=== PATIENT | male | born 1950 | race Caucasian/White ===

== ENCOUNTER 2016-11-05 12:01 | Emergency (ER) | payer MEDICARE, OTHER ==
[~2016-11-05] VITALS: Ht 180.3 cm; Wt 100.0 kg
[~2016-11-05 12:01] MED LIST: ADV100 IH; AMIO200T PO; ATOR40TA71 PO; CILO2.5OS OD; CLOP75TA PO; DICL1OS OD; DICL4100G TP; DIPH25 PO; DSS100 PO; ESOM20CA31 PO; FAMO20 PO; FOLI1TAB15 PO; INSU100C6 SQ; INSU100V12 SQ; LACT10SO PO; LISI-622 PO; METO25TA6 PO; MULT-12 PO; NITR0.4T SL; NITR25OR3 PO; ONDA8TAB5 PO; OXYC10TA89 PO; PANT40TA25 PO; PREDAOS OD; RANO10003 PO; SENN8.6T12 PO; SULF-168 PO; TAMS0.4C32 PO
[2016-11-05 12:03] VITALS: BP 145/60
[2016-11-05 12:17] LABS: GLUCOSE,POINT OF CARE 133 MG/DL (70-110)
[2016-11-05 16:16] LABS: APPEARANCE,URINE TURBID (CLEAR); GLUCOSE, URINE (UA) NEGATIVE (NEGATIVE); KETONES,URINE NEGATIVE (NEGATIVE); LEUKOCYTE ESTERASE ,URINE MODERATE (NEGATIVE); OCCULT BLOOD,URINE LARGE (NEGATIVE); PROTEIN,URINE SEE CONFIRM (NEGATIVE)
[2016-11-05 16:36] LABS: ADD UA MICROSCOPIC YES
[2016-11-05 16:52] LABS: AMORPHOUS SEDIMENT,UR Many /LPF (None Seen); SQUAMOUS EPITHELIAL CELL,UR Few /LPF (None Seen); SULFOSALICYLIC ACID,URINE 2+ (Negative); WBC,URINE 26-50 /HPF (0-5)
== END 2016-11-05 18:17 | disposition home or self-care (01) ==
LOC: EMS 12:02
DX: N39.0 Urinary tract infection, site not specified (principal); K21.9 Gastro-esophageal reflux disease without esophagitis; E11.9 Type 2 diabetes mellitus without complications; I25.2 Old myocardial infarction; J44.9 Chronic obstructive pulmonary disease, unspecified; E78.00 Pure hypercholesterolemia, unspecified; Z88.0 Allergy status to penicillin; Z79.4 Long term (current) use of insulin
CPT/HCPCS: 82962; 87086; 99284

== ENCOUNTER 2016-12-19 17:29 | Inpatient (IN) | payer MEDICARE, OTHER ==
[~2016-12-19] VITALS: Ht 172.7 cm; Wt 109.1 kg
[~2016-12-19 17:29] MED LIST changes: -SULF-168 PO
[2016-12-19 17:47] LABS: GLUCOSE,POINT OF CARE 144 MG/DL (70-110)
[2016-12-19] MEDS ORDERED: ONDANSETRON HCL 4 MG/2 ML VIAL IVP ONE (18:15)
[2016-12-19 18:28] LABS: BASOPHILS % (AUTO) 0.1 % (0.0-2.0); EOSINOPHILS % (AUTO) 1.2 % (1.0-6.0); HEMATOCRIT 42.9 % (41-53); HEMOGLOBIN 13.7 g/dL (13.5-17.5); LYMPHOCYTES # (AUTO) 0.7 K/uL (1.0-4.8); LYMPHOCYTES % (AUTO) 7.7 % (22.0-44.0); MEAN CORPUSCULAR HEMOGLOBIN 28.4 pg (26.0-34.0); MEAN CORPUSCULAR VOLUME 89 fL (80-100); MONOCYTES % (AUTO) 10.3 % (2.0-9.0); NEUTROPHILS # (AUTO) 7.7 K/uL (1.8-7.7); NEUTROPHILS % (AUTO) 80.7 % (40.0-70.0); PLATELET COUNT (AUTO) 200 K/uL (150-450); RED BLOOD CELL COUNT(AUTO) 4.83 MIL/uL (4.50-5.90); RED CELL DISTRIBUTION WIDTH 14.2 % (11.5-14.5); WHITE BLOOD COUNT (AUTO) 9.5 K/uL (4.5-11.0)
[2016-12-19 18:38] LABS: CALCIUM, TOTAL 8.4 mg/dL (8.8-10.5); CREATININE 3.27 mg/dL (0.60-1.30); POTASSIUM 4.2 mmol/L (3.5-5.1)
[2016-12-19 18:43] LABS: ALBUMIN 3.4 g/dL (3.4-5.0); BILIRUBIN,TOTAL 0.5 mg/dL (0.1-1.0); TOTAL PROTEIN, SERUM 6.9 g/dL (6.4-8.2)
[2016-12-19] MEDS ORDERED: SODIUM CHLORIDE 0.9% 1,000 ML IV ONE (19:15)
[2016-12-19 19:53] LABS: APPEARANCE,URINE TURBID (CLEAR); GLUCOSE, URINE (UA) NEGATIVE (NEGATIVE); KETONES,URINE NEGATIVE (NEGATIVE); LEUKOCYTE ESTERASE ,URINE MODERATE (NEGATIVE); OCCULT BLOOD,URINE LARGE (NEGATIVE); PROTEIN,URINE SEE CONFIRM (NEGATIVE)
[2016-12-19] MEDS ORDERED: CefTRIAXone 1 GM/DEXTROSE 50 ML IV ONE (20:00)
[2016-12-19 20:03] LABS: SULFOSALICYLIC ACID,URINE 3+ (Negative)
[2016-12-19 20:04] LABS: SQUAMOUS EPITHELIAL CELL,UR Few /LPF (None Seen)
[2016-12-19 20:06] LABS: HYALINE CASTS, URINE 0-2 /LPF (None Seen); RBC,URINE 51-100 /HPF (0-2)
[2016-12-19 20:07] LABS: WBC,URINE 51-100 /HPF (0-5)
[2016-12-19 20:08] LABS: RENAL EPITHELIAL CELLS,URINE Few /LPF (None Seen)
[2016-12-19 20:09] LABS: TRANSITIONAL EPI CELLS,URINE Rare /LPF (None Seen)
[2016-12-19] MEDS ORDERED: MORPHINE SULFATE 4 MG/ML SYRINGE IVP PRN (21:00)
[2016-12-19] MEDS ORDERED: HYDROCODONE/ACETAMINOPHEN 5-325 MG TABLET PO PRN (21:00)
[2016-12-19] MEDS ORDERED: ACETAMINOPHEN 325 MG TABLET PO PRN (21:00)
[2016-12-19] MEDS ORDERED: ONDANSETRON HCL 4 MG/2 ML VIAL IVP PRN (21:00)
[2016-12-19 21:14] VITALS: BP 161/83
[2016-12-20] MEDS ORDERED: ACETAMINOPHEN 325 MG TABLET PO PRN
[2016-12-20] MEDS ORDERED: BISACODYL 10 MG RECTAL RECTAL SUPPOSITORY PR PRN
[2016-12-20] MEDS ORDERED: ALBUTEROL SULFATE 2.5 MG/0.5 ML NEB SOLUTION NEB PRN
[2016-12-20] MEDS ORDERED: IPRATROPIUM BROMIDE 0.5 MG/2.5 ML NEB SOLUTION NEB PRN
[2016-12-20 00:18] VITALS: BP 161/90
[2016-12-20] MEDS: MORPHINE SULFATE 2 MG/ML SYRINGE IVP PRN ×4 (00:23→15:08)
[2016-12-20] MEDS: SODIUM CHLORIDE 0.45% 1,000 ML IV SCH ×3 (00:25→22:35)
[2016-12-20] MEDS: HEPARIN SODIUM,PORCINE 5,000 UNITS/ML VIAL SQ SCH ×4 (00:27→22:35)
[2016-12-20 01:42] LABS: GLUCOSE,POINT OF CARE 132 MG/DL (70-110)
[2016-12-20 05:13] VITALS: BP 161/69
[2016-12-20] MEDS: HYDROCODONE/ACETAMINOPHEN 5-325 MG TABLET PO PRN ×2 (06:13→11:40)
[2016-12-20 07:32] LABS: GLUCOSE,POINT OF CARE 122 MG/DL (70-110)
[2016-12-20 07:44] VITALS: BP 102/80
[2016-12-20] MEDS: DOCUSATE SODIUM 100 MG CAPSULE PO SCH ×2 (08:34→21:00)
[2016-12-20] MEDS: MULTIVITAMINS, THERAPEUTIC TABLET PO SCH (08:34)
[2016-12-20] MEDS: FOLIC ACID 1 MG TABLET PO SCH (08:34)
[2016-12-20] MEDS: ATORVASTATIN CALCIUM 40 MG TABLET PO SCH (08:34)
[2016-12-20] MEDS: CLOPIDOGREL BISULFATE 75 MG TABLET PO SCH (08:34)
[2016-12-20] MEDS: AMIODARONE HCL 200 MG TABLET PO SCH (08:34)
[2016-12-20] MEDS: TAMSULOSIN HCL 0.4 MG CAPSULE PO SCH (08:35)
[2016-12-20] MEDS: PANTOPRAZOLE SODIUM 40 MG/VIAL IVP SCH (08:35)
[2016-12-20] MEDS: NITROFURANTOIN MACROCRYSTAL 50 MG CAPSULE PO SCH (08:35)
[2016-12-20] MEDS: DICLOFENAC SODIUM 1% 100 GM GEL [4GM] TP SCH (08:35)
[2016-12-20] MEDS: FAMOTIDINE 20 MG TABLET PO SCH ×2 (08:36→22:34)
[2016-12-20] MEDS: PHENAZOPYRIDINE HCL 200 MG TABLET PO SCH ×2 (08:36→16:00)
[2016-12-20] MEDS: METOPROLOL TARTRATE 25 MG TABLET PO SCH ×2 (08:36→21:00)
[2016-12-20] MEDS ORDERED: LISINOPRIL 5 MG TABLET PO SCH (09:00)
[2016-12-20] MEDS ORDERED: DOCUSATE SODIUM 100 MG CAPSULE PO SCH (09:00)
[2016-12-20 11:57] VITALS: BP 125/81
[2016-12-20 16:49] VITALS: BP 105/40
[2016-12-20] MEDS ORDERED: NITR50 PO (16:49)
[2016-12-20] MEDS ORDERED: IOHEXOL 240 MG/ML 50 ML VIAL ONE ×2 (17:22→20:53)
[2016-12-20] MEDS ORDERED: HEPARIN SODIUM 1000 UNITS/NS 500 ML ONE (17:33)
[2016-12-20] MEDS ORDERED: LIDOCAINE HCL/PF 1% 30 ML VIAL ONE (17:33)
[2016-12-20] MEDS: CIPROFLOXACIN 400 MG/D5% WATER 200 ML IV SCH ×2 (18:00→18:30)
[2016-12-20 18:13] LABS: INR 1.1 (0.9-1.1); PROTHROMBIN TIME 11.5 SEC (9.4-11.6)
[2016-12-20] MEDS: HYDROmorphone 2 MG/ML SYRINGE IVP PRN ×2 (19:07→22:34)
[2016-12-20] MEDS ORDERED: MIDAZOLAM HCL 2 MG/2 ML VIAL IVP ONE (19:26)
[2016-12-20] MEDS ORDERED: FentaNYL CITRATE-PF 100 MCG/2 ML VIAL ONE (19:30)
[2016-12-20] MEDS ORDERED: MIDAZOLAM HCL 2 MG/2 ML VIAL ONE (19:30)
[2016-12-20] MEDS ORDERED: FentaNYL CITRATE-PF 100 MCG/2 ML VIAL IVP ONE (20:27)
[2016-12-20 22:15] VITALS: BP 119/58
[2016-12-20] MEDS: RANOLAZINE 500 MG SR TABLET PO SCH (22:34)
[2016-12-20] MEDS: CefTRIAXone 1 GM/DEXTROSE 50 ML IV SCH (22:35)
[2016-12-21] VITALS (8 sets, daily range): BP systolic 94–148; BP diastolic 46–97
[2016-12-21] MEDS: SODIUM CHLORIDE 0.45% 1,000 ML IV SCH (02:50)
[2016-12-21] MEDS: HYDROmorphone 2 MG/ML SYRINGE IVP PRN ×2 (02:50→08:40)
[2016-12-21] MEDS: CIPROFLOXACIN 400 MG/D5% WATER 200 ML IV SCH ×2 (05:30→17:37)
[2016-12-21 06:53] LABS: BASOPHILS % (AUTO) 0.4 % (0.0-2.0); EOSINOPHILS % (AUTO) 2.3 % (1.0-6.0); HEMATOCRIT 39.9 % (41-53); HEMOGLOBIN 12.9 g/dL (13.5-17.5); LYMPHOCYTES # (AUTO) 1.4 K/uL (1.0-4.8); LYMPHOCYTES % (AUTO) 14.3 % (22.0-44.0); MEAN CORPUSCULAR HEMOGLOBIN 28.7 pg (26.0-34.0); MEAN CORPUSCULAR HGB CONC 32.3 G/dL (31.0-37.0); MEAN CORPUSCULAR VOLUME 89 fL (80-100); MONOCYTES % (AUTO) 10.6 % (2.0-9.0); NEUTROPHILS # (AUTO) 6.9 K/uL (1.8-7.7); NEUTROPHILS % (AUTO) 72.4 % (40.0-70.0); PLATELET COUNT (AUTO) 230 K/uL (150-450); RED BLOOD CELL COUNT(AUTO) 4.49 MIL/uL (4.50-5.90); RED CELL DISTRIBUTION WIDTH 14.5 % (11.5-14.5); WHITE BLOOD COUNT (AUTO) 9.6 K/uL (4.5-11.0)
[2016-12-21 06:55] LABS: ANION GAP 15 mmol/L (8-16); CALCIUM, TOTAL 7.7 mg/dL (8.8-10.5); CARBON DIOXIDE 19 mmol/L (22-29); CHLORIDE 105 mmol/L (98-107); CHOL/HDL RATIO 4.6 (4.2-7.3); CREATINE KINASE MB 1.8 ng/mL (0-5); CREATINE KINASE, TOTAL 170 U/L (39-308); CREATININE 4.03 mg/dL (0.60-1.30); GLOMERULAR FILTR. RATE CALC 15 mL/min (>60); POTASSIUM 4.4 mmol/L (3.5-5.1); SODIUM SERUM 139 mmol/L (136-145); THYROID STIMULATING HORMONE 2.76 uIU/mL (0.36-3.74); UREA NITROGEN, BLOOD 50 mg/dL (7-18)
[2016-12-21 07:34] LABS: B-TYPE NATRIURETIC PEPTIDE 78 pg/mL (0-100)
[2016-12-21] MEDS: HEPARIN SODIUM,PORCINE 5,000 UNITS/ML VIAL SQ SCH ×3 (08:00→23:35)
[2016-12-21] MEDS: RANOLAZINE 500 MG SR TABLET PO SCH ×2 (08:40→19:50)
[2016-12-21] MEDS: FAMOTIDINE 20 MG TABLET PO SCH ×2 (08:41→19:50)
[2016-12-21] MEDS: METOPROLOL TARTRATE 25 MG TABLET PO SCH ×2 (08:41→19:51)
[2016-12-21] MEDS: CLOPIDOGREL BISULFATE 75 MG TABLET PO SCH (08:41)
[2016-12-21] MEDS: FOLIC ACID 1 MG TABLET PO SCH (08:41)
[2016-12-21] MEDS: AMIODARONE HCL 200 MG TABLET PO SCH (08:41)
[2016-12-21] MEDS: MULTIVITAMINS, THERAPEUTIC TABLET PO SCH (08:41)
[2016-12-21] MEDS: ATORVASTATIN CALCIUM 40 MG TABLET PO SCH (08:41)
[2016-12-21] MEDS: DOCUSATE SODIUM 100 MG CAPSULE PO SCH ×2 (08:42→19:50)
[2016-12-21] MEDS: NITROFURANTOIN MACROCRYSTAL 50 MG CAPSULE PO SCH (08:42)
[2016-12-21] MEDS: TAMSULOSIN HCL 0.4 MG CAPSULE PO SCH (09:09)
[2016-12-21] MEDS: DICLOFENAC SODIUM 1% 100 GM GEL [4GM] TP SCH (09:09)
[2016-12-21] MEDS: PANTOPRAZOLE SODIUM 40 MG/VIAL IVP SCH (09:09)
[2016-12-21 11:22] LABS: URIC ACID 9.7 mg/dL (2.6-7.2)
[2016-12-21] MEDS: HYDROCODONE/ACETAMINOPHEN 5-325 MG TABLET PO PRN ×2 (11:43→19:50)
[2016-12-21] MEDS: CefTRIAXone 1 GM/DEXTROSE 50 ML IV SCH (19:50)
[2016-12-21] MEDS: ZOLPIDEM TARTRATE 5 MG TABLET PO PRN (19:50)
[2016-12-21 20:16] LABS: APPEARANCE,URINE CLOUDY (CLEAR); GLUCOSE, URINE (UA) NEGATIVE (NEGATIVE); KETONES,URINE NEGATIVE (NEGATIVE); LEUKOCYTE ESTERASE ,URINE SMALL (NEGATIVE); OCCULT BLOOD,URINE LARGE (NEGATIVE); PROTEIN,URINE SEE CONFIRM (NEGATIVE)
[2016-12-21 20:21] LABS: RBC,URINE 51-100 /HPF (0-2); SQUAMOUS EPITHELIAL CELL,UR Few /LPF (None Seen); SULFOSALICYLIC ACID,URINE 3+ (Negative); WBC,URINE 26-50 /HPF (0-5)
[2016-12-21 22:21] LABS: APPEARANCE,URINE CLOUDY (CLEAR); GLUCOSE, URINE (UA) NEGATIVE (NEGATIVE); KETONES,URINE 15 mg/dL (NEGATIVE); LEUKOCYTE ESTERASE ,URINE LARGE (NEGATIVE); OCCULT BLOOD,URINE LARGE (NEGATIVE); PROTEIN,URINE SEE CONFIRM (NEGATIVE)
[2016-12-21 22:29] LABS: RBC,URINE >100 /HPF (0-2)
[2016-12-22 04:28] VITALS: BP 104/56
[2016-12-22] MEDS: HYDROmorphone 2 MG/ML SYRINGE IVP PRN ×2 (05:53→22:02)
[2016-12-22] MEDS: SODIUM CHLORIDE 0.45% 1,000 ML IV SCH ×2 (05:54→16:30)
[2016-12-22 07:04] LABS: BASOPHILS % (AUTO) 0.6 % (0.0-2.0); EOSINOPHILS % (AUTO) 3.5 % (1.0-6.0); HEMATOCRIT 36.6 % (41-53); HEMOGLOBIN 11.8 g/dL (13.5-17.5); LYMPHOCYTES # (AUTO) 1.1 K/uL (1.0-4.8); LYMPHOCYTES % (AUTO) 13.5 % (22.0-44.0); MEAN CORPUSCULAR HEMOGLOBIN 28.5 pg (26.0-34.0); MEAN CORPUSCULAR HGB CONC 32.3 G/dL (31.0-37.0); MEAN CORPUSCULAR VOLUME 88 fL (80-100); MONOCYTES # (AUTO) 0.8 K/uL (0.1-1.0); MONOCYTES % (AUTO) 10.1 % (2.0-9.0); NEUTROPHILS # (AUTO) 5.8 K/uL (1.8-7.7); NEUTROPHILS % (AUTO) 72.3 % (40.0-70.0); PLATELET COUNT (AUTO) 204 K/uL (150-450); RED BLOOD CELL COUNT(AUTO) 4.15 MIL/uL (4.50-5.90); RED CELL DISTRIBUTION WIDTH 14.2 % (11.5-14.5)
[2016-12-22 07:25] VITALS: BP 129/77
[2016-12-22 07:29] LABS: CALCIUM, TOTAL 7.5 mg/dL (8.8-10.5); CREATININE 4.83 mg/dL (0.60-1.30); POTASSIUM 4.9 mmol/L (3.5-5.1)
[2016-12-22] MEDS: METOPROLOL TARTRATE 25 MG TABLET PO SCH ×2 (08:02→19:46)
[2016-12-22] MEDS: TAMSULOSIN HCL 0.4 MG CAPSULE PO SCH (08:02)
[2016-12-22] MEDS: ONDANSETRON HCL 4 MG/2 ML VIAL IVP PRN (08:02)
[2016-12-22] MEDS: AMIODARONE HCL 200 MG TABLET PO SCH (08:02)
[2016-12-22] MEDS: FOLIC ACID 1 MG TABLET PO SCH (08:02)
[2016-12-22] MEDS: CLOPIDOGREL BISULFATE 75 MG TABLET PO SCH (08:02)
[2016-12-22] MEDS: MULTIVITAMINS, THERAPEUTIC TABLET PO SCH (08:02)
[2016-12-22] MEDS: RANOLAZINE 500 MG SR TABLET PO SCH ×2 (08:02→19:49)
[2016-12-22] MEDS: ATORVASTATIN CALCIUM 40 MG TABLET PO SCH (08:02)
[2016-12-22] MEDS: NITROFURANTOIN MACROCRYSTAL 50 MG CAPSULE PO SCH (08:03)
[2016-12-22] MEDS: FAMOTIDINE 20 MG TABLET PO SCH ×2 (08:03→19:46)
[2016-12-22] MEDS: DOCUSATE SODIUM 100 MG CAPSULE PO SCH ×2 (08:03→19:45)
[2016-12-22] MEDS: HEPARIN SODIUM,PORCINE 5,000 UNITS/ML VIAL SQ SCH ×3 (08:03→23:32)
[2016-12-22] MEDS: PANTOPRAZOLE SODIUM 40 MG/VIAL IVP SCH (08:03)
[2016-12-22] MEDS: DICLOFENAC SODIUM 1% 100 GM GEL [4GM] TP SCH (09:15)
[2016-12-22] MEDS: CALCIUM CARBONATE 500 MG CHEWABLE TABLET CHEW PRN (11:12)
[2016-12-22 12:10] VITALS: BP 145/50
[2016-12-22 15:26] VITALS: BP 104/57
[2016-12-22] MEDS: HYDROCODONE/ACETAMINOPHEN 5-325 MG TABLET PO PRN (18:46)
[2016-12-22] MEDS: ZOLPIDEM TARTRATE 5 MG TABLET PO PRN (19:45)
[2016-12-22] MEDS: CefTRIAXone 1 GM/DEXTROSE 50 ML IV SCH (19:45)
[2016-12-22] MEDS: CITRIC ACID/SODIUM CITRATE 30 ML SOLUTION UDCUP PO SCH (19:49)
[2016-12-22 20:08] VITALS: BP 117/59
[2016-12-23 00:18] VITALS: BP 121/64
[2016-12-23] MEDS: HYDROmorphone 2 MG/ML SYRINGE IVP PRN ×3 (04:36→20:38)
[2016-12-23 04:50] VITALS: BP 121/64
[2016-12-23 06:43] LABS: BASOPHILS # (AUTO) 0.05 K/uL (0.00-0.20); BASOPHILS % (AUTO) 0.8 % (0.0-2.0); EOSINOPHILS # (AUTO) 0.21 K/uL (0.00-0.70); EOSINOPHILS % (AUTO) 3.46 % (1.0-6.0); HEMATOCRIT 33.9 % (41-53); HEMOGLOBIN 11.3 g/dL (13.5-17.5); LYMPHOCYTES # (AUTO) 0.6 K/uL (1.0-4.8); LYMPHOCYTES % (AUTO) 10.3 % (22.0-44.0); MEAN CORPUSCULAR HEMOGLOBIN 29.6 pg (26.0-34.0); MEAN CORPUSCULAR HGB CONC 33.2 G/dL (31.0-37.0); MEAN CORPUSCULAR VOLUME 89 fL (80-100); MONOCYTES # (AUTO) 0.6 K/uL (0.1-1.0); MONOCYTES % (AUTO) 9.3 % (2.0-9.0); NEUTROPHILS # (AUTO) 4.7 K/uL (1.8-7.7); NEUTROPHILS % (AUTO) 76.2 % (40.0-70.0); PLATELET COUNT (AUTO) 193 K/uL (150-450); RED BLOOD CELL COUNT(AUTO) 3.81 MIL/uL (4.50-5.90); RED CELL DISTRIBUTION WIDTH 14.2 % (11.5-14.5); WHITE BLOOD COUNT (AUTO) 6.2 K/uL (4.5-11.0)
[2016-12-23 07:10] LABS: CALCIUM, TOTAL 7.4 mg/dL (8.8-10.5); CREATININE 4.88 mg/dL (0.60-1.30); POTASSIUM 4.5 mmol/L (3.5-5.1)
[2016-12-23] MEDS: CITRIC ACID/SODIUM CITRATE 30 ML SOLUTION UDCUP PO SCH ×2 (07:49→20:30)
[2016-12-23] MEDS: PANTOPRAZOLE SODIUM 40 MG/VIAL IVP SCH (07:51)
[2016-12-23] MEDS: AMIODARONE HCL 200 MG TABLET PO SCH (07:51)
[2016-12-23] MEDS: METOPROLOL TARTRATE 25 MG TABLET PO SCH ×2 (07:51→20:30)
[2016-12-23] MEDS: FAMOTIDINE 20 MG TABLET PO SCH ×2 (07:52→20:31)
[2016-12-23] MEDS: ATORVASTATIN CALCIUM 40 MG TABLET PO SCH (07:52)
[2016-12-23] MEDS: MULTIVITAMINS, THERAPEUTIC TABLET PO SCH (07:52)
[2016-12-23] MEDS: DOCUSATE SODIUM 100 MG CAPSULE PO SCH ×2 (07:52→20:30)
[2016-12-23] MEDS: TAMSULOSIN HCL 0.4 MG CAPSULE PO SCH (07:52)
[2016-12-23] MEDS: CLOPIDOGREL BISULFATE 75 MG TABLET PO SCH (07:52)
[2016-12-23] MEDS: FOLIC ACID 1 MG TABLET PO SCH (07:53)
[2016-12-23] MEDS: HEPARIN SODIUM,PORCINE 5,000 UNITS/ML VIAL SQ SCH ×3 (07:53→23:05)
[2016-12-23] MEDS: RANOLAZINE 500 MG SR TABLET PO SCH ×2 (07:53→20:31)
[2016-12-23] MEDS: DICLOFENAC SODIUM 1% 100 GM GEL [4GM] TP SCH (07:54)
[2016-12-23 08:13] VITALS: BP 132/58
[2016-12-23 11:45] VITALS: BP 151/67
[2016-12-23 15:43] VITALS: BP 107/64
[2016-12-23] MEDS: SODIUM CHLORIDE 0.45% 1,000 ML IV SCH (18:07)
[2016-12-23] MEDS: CefTRIAXone 1 GM/DEXTROSE 50 ML IV SCH (20:30)
[2016-12-23] MEDS: CALCIUM CARBONATE 500 MG CHEWABLE TABLET CHEW PRN (20:32)
[2016-12-23 21:00] VITALS: BP 117/63
[2016-12-24] VITALS (7 sets, daily range): BP systolic 98–153; BP diastolic 48–71
[2016-12-24] MEDS: HYDROmorphone 2 MG/ML SYRINGE IVP PRN ×2 (01:41→22:58)
[2016-12-24] MEDS: SODIUM CHLORIDE 0.45% 1,000 ML IV SCH ×2 (04:55→10:40)
[2016-12-24] MEDS: ONDANSETRON HCL 4 MG/2 ML VIAL IVP PRN ×2 (05:02→22:59)
[2016-12-24] MEDS: CITRIC ACID/SODIUM CITRATE 30 ML SOLUTION UDCUP PO SCH ×2 (07:47→21:47)
[2016-12-24] MEDS: PANTOPRAZOLE SODIUM 40 MG/VIAL IVP SCH (07:47)
[2016-12-24] MEDS: ATORVASTATIN CALCIUM 40 MG TABLET PO SCH (07:48)
[2016-12-24] MEDS: DOCUSATE SODIUM 100 MG CAPSULE PO SCH ×2 (07:48→21:44)
[2016-12-24] MEDS: RANOLAZINE 500 MG SR TABLET PO SCH ×2 (07:48→21:44)
[2016-12-24] MEDS: TAMSULOSIN HCL 0.4 MG CAPSULE PO SCH (07:48)
[2016-12-24] MEDS: CLOPIDOGREL BISULFATE 75 MG TABLET PO SCH (07:48)
[2016-12-24] MEDS: METOPROLOL TARTRATE 25 MG TABLET PO SCH ×2 (07:48→21:44)
[2016-12-24] MEDS: MULTIVITAMINS, THERAPEUTIC TABLET PO SCH (07:48)
[2016-12-24] MEDS: AMIODARONE HCL 200 MG TABLET PO SCH (07:48)
[2016-12-24] MEDS: FOLIC ACID 1 MG TABLET PO SCH (07:48)
[2016-12-24] MEDS: HEPARIN SODIUM,PORCINE 5,000 UNITS/ML VIAL SQ SCH ×2 (07:48→15:48)
[2016-12-24] MEDS: DICLOFENAC SODIUM 1% 100 GM GEL [4GM] TP SCH (07:49)
[2016-12-24] MEDS: FAMOTIDINE 20 MG TABLET PO SCH ×2 (07:49→21:44)
[2016-12-24] MEDS: HYDROCODONE/ACETAMINOPHEN 5-325 MG TABLET PO PRN (08:00)
[2016-12-24] MEDS ORDERED: IOHEXOL 240 MG/ML 50 ML VIAL ONE (10:00)
[2016-12-24] MEDS ORDERED: FentaNYL CITRATE-PF 100 MCG/2 ML VIAL ONE ×2 (11:33→13:05)
[2016-12-24] MEDS ORDERED: MIDAZOLAM HCL 2 MG/2 ML VIAL ONE (11:34)
[2016-12-24] MEDS: SODIUM CHLORIDE 0.9% 1,000 ML IV SCH (13:28)
[2016-12-24] MEDS: MAGNESIUM HYDROXIDE SUSPENSION 30 ML UDCUP PO PRN (15:01)
[2016-12-24] MEDS: CIPROFLOXACIN 400 MG/D5% WATER 200 ML IV SCH (15:47)
[2016-12-24] MEDS: CefTRIAXone 1 GM/DEXTROSE 50 ML IV SCH (21:47)
[2016-12-25] MEDS: SODIUM CHLORIDE 0.45% 1,000 ML IV SCH
[2016-12-25] MEDS: HEPARIN SODIUM,PORCINE 5,000 UNITS/ML VIAL SQ SCH ×4 (00:51→23:11)
[2016-12-25 03:20] VITALS: BP 137/68
[2016-12-25] MEDS: SODIUM CHLORIDE 0.9% 1,000 ML IV SCH ×2 (05:39→20:26)
[2016-12-25] MEDS: CIPROFLOXACIN 400 MG/D5% WATER 200 ML IV SCH ×2 (05:39→16:24)
[2016-12-25] MEDS: HYDROmorphone 2 MG/ML SYRINGE IVP PRN ×3 (05:43→20:52)
[2016-12-25 06:03] LABS: APPEARANCE,URINE TURBID (CLEAR); GLUCOSE, URINE (UA) NEGATIVE (NEGATIVE); KETONES,URINE 15 mg/dL (NEGATIVE); LEUKOCYTE ESTERASE ,URINE LARGE (NEGATIVE); OCCULT BLOOD,URINE LARGE (NEGATIVE); PROTEIN,URINE SEE CONFIRM (NEGATIVE)
[2016-12-25 06:20] LABS: SULFOSALICYLIC ACID,URINE 4+ (Negative)
[2016-12-25 06:21] LABS: RBC,URINE >100 /HPF (0-2); SQUAMOUS EPITHELIAL CELL,UR Many /LPF (None Seen); WBC,URINE 51-100 /HPF (0-5)
[2016-12-25 08:02] VITALS: BP 136/60
[2016-12-25] MEDS: PANTOPRAZOLE SODIUM 40 MG/VIAL IVP SCH (08:46)
[2016-12-25] MEDS: ATORVASTATIN CALCIUM 40 MG TABLET PO SCH (08:47)
[2016-12-25] MEDS: CLOPIDOGREL BISULFATE 75 MG TABLET PO SCH (08:47)
[2016-12-25] MEDS: AMIODARONE HCL 200 MG TABLET PO SCH (08:47)
[2016-12-25] MEDS: RANOLAZINE 500 MG SR TABLET PO SCH ×2 (08:47→20:27)
[2016-12-25] MEDS: MULTIVITAMINS, THERAPEUTIC TABLET PO SCH (08:47)
[2016-12-25] MEDS: FAMOTIDINE 20 MG TABLET PO SCH ×2 (08:47→20:26)
[2016-12-25] MEDS: TAMSULOSIN HCL 0.4 MG CAPSULE PO SCH (08:47)
[2016-12-25] MEDS: FOLIC ACID 1 MG TABLET PO SCH (08:48)
[2016-12-25] MEDS: DOCUSATE SODIUM 100 MG CAPSULE PO SCH ×2 (08:48→20:26)
[2016-12-25] MEDS: CITRIC ACID/SODIUM CITRATE 30 ML SOLUTION UDCUP PO SCH ×2 (08:48→20:26)
[2016-12-25] MEDS: METOPROLOL TARTRATE 25 MG TABLET PO SCH ×2 (08:48→20:26)
[2016-12-25] MEDS: DICLOFENAC SODIUM 1% 100 GM GEL [4GM] TP SCH (08:49)
[2016-12-25 09:30] LABS: BASOPHILS % (AUTO) 0.1 % (0.0-2.0); EOSINOPHILS # (AUTO) 0.16 K/uL (0.00-0.70); EOSINOPHILS % (AUTO) 2.63 % (1.0-6.0); HEMATOCRIT 36.7 % (41-53); LYMPHOCYTES # (AUTO) 0.6 K/uL (1.0-4.8); LYMPHOCYTES % (AUTO) 9.1 % (22.0-44.0); MEAN CORPUSCULAR HEMOGLOBIN 29.1 pg (26.0-34.0); MEAN CORPUSCULAR HGB CONC 32.7 G/dL (31.0-37.0); MEAN CORPUSCULAR VOLUME 89 fL (80-100); MONOCYTES # (AUTO) 0.6 K/uL (0.1-1.0); MONOCYTES % (AUTO) 9.3 % (2.0-9.0); NEUTROPHILS # (AUTO) 4.8 K/uL (1.8-7.7); NEUTROPHILS % (AUTO) 78.9 % (40.0-70.0); PLATELET COUNT (AUTO) 202 K/uL (150-450); RED BLOOD CELL COUNT(AUTO) 4.11 MIL/uL (4.50-5.90); RED CELL DISTRIBUTION WIDTH 14.5 % (11.5-14.5); WHITE BLOOD COUNT (AUTO) 6.1 K/uL (4.5-11.0)
[2016-12-25 09:40] LABS: CALCIUM, TOTAL 7.6 mg/dL (8.8-10.5); CREATININE 4.52 mg/dL (0.60-1.30); POTASSIUM 4.7 mmol/L (3.5-5.1)
[2016-12-25 09:46] LABS: BILIRUBIN,TOTAL 0.3 mg/dL (0.1-1.0); PHOSPHORUS 4.5 mg/dL (2.5-4.9)
[2016-12-25 10:03] LABS: ALBUMIN 2.7 g/dL (3.4-5.0)
[2016-12-25 11:51] VITALS: BP 125/66
[2016-12-25 15:45] VITALS: BP 146/66
[2016-12-25] MEDS: PHENAZOPYRIDINE HCL 100 MG TABLET PO SCH ×2 (16:25→20:27)
[2016-12-25 19:05] VITALS: BP 141/61
[2016-12-25] MEDS: CefTRIAXone 1 GM/DEXTROSE 50 ML IV SCH (20:52)
[2016-12-25] MEDS: ZOLPIDEM TARTRATE 5 MG TABLET PO PRN (23:11)
[2016-12-25 23:32] VITALS: BP 124/71
[2016-12-26] VITALS (7 sets, daily range): BP systolic 122–166; BP diastolic 57–85
[2016-12-26] MEDS: HYDROmorphone 2 MG/ML SYRINGE IVP PRN ×4 (02:16→21:47)
[2016-12-26] MEDS: CIPROFLOXACIN 400 MG/D5% WATER 200 ML IV SCH ×2 (04:25→15:08)
[2016-12-26] MEDS: ONDANSETRON HCL 4 MG/2 ML VIAL IVP PRN (06:01)
[2016-12-26 06:35] LABS: BASOPHILS # (AUTO) 0.02 K/uL (0.00-0.20); BASOPHILS % (AUTO) 0.4 % (0.0-2.0); EOSINOPHILS # (AUTO) 0.15 K/uL (0.00-0.70); EOSINOPHILS % (AUTO) 2.63 % (1.0-6.0); HEMATOCRIT 33.1 % (41-53); HEMOGLOBIN 10.9 g/dL (13.5-17.5); LYMPHOCYTES # (AUTO) 0.5 K/uL (1.0-4.8); LYMPHOCYTES % (AUTO) 8.2 % (22.0-44.0); MEAN CORPUSCULAR HEMOGLOBIN 29.3 pg (26.0-34.0); MEAN CORPUSCULAR VOLUME 89 fL (80-100); MONOCYTES # (AUTO) 0.6 K/uL (0.1-1.0); MONOCYTES % (AUTO) 10.2 % (2.0-9.0); NEUTROPHILS # (AUTO) 4.4 K/uL (1.8-7.7); NEUTROPHILS % (AUTO) 78.6 % (40.0-70.0); PLATELET COUNT (AUTO) 200 K/uL (150-450); RED BLOOD CELL COUNT(AUTO) 3.73 MIL/uL (4.50-5.90); RED CELL DISTRIBUTION WIDTH 14.4 % (11.5-14.5); WHITE BLOOD COUNT (AUTO) 5.6 K/uL (4.5-11.0)
[2016-12-26 07:15] LABS: ALBUMIN 2.5 g/dL (3.4-5.0); BILIRUBIN,TOTAL 0.4 mg/dL (0.1-1.0); CALCIUM, TOTAL 7.2 mg/dL (8.8-10.5); CREATININE 4.09 mg/dL (0.60-1.30); POTASSIUM 4.4 mmol/L (3.5-5.1); TOTAL PROTEIN, SERUM 5.6 g/dL (6.4-8.2)
[2016-12-26] MEDS: HEPARIN SODIUM,PORCINE 5,000 UNITS/ML VIAL SQ SCH ×3 (08:28→23:29)
[2016-12-26] MEDS: METOPROLOL TARTRATE 25 MG TABLET PO SCH ×2 (08:28→20:15)
[2016-12-26] MEDS: CALCIUM CARBONATE 500 MG CHEWABLE TABLET CHEW PRN (08:28)
[2016-12-26] MEDS: FOLIC ACID 1 MG TABLET PO SCH (08:28)
[2016-12-26] MEDS: AMIODARONE HCL 200 MG TABLET PO SCH (08:28)
[2016-12-26] MEDS: MULTIVITAMINS, THERAPEUTIC TABLET PO SCH (08:28)
[2016-12-26] MEDS: CLOPIDOGREL BISULFATE 75 MG TABLET PO SCH (08:28)
[2016-12-26] MEDS: PANTOPRAZOLE SODIUM 40 MG/VIAL IVP SCH (08:28)
[2016-12-26] MEDS: TAMSULOSIN HCL 0.4 MG CAPSULE PO SCH (08:29)
[2016-12-26] MEDS: PHENAZOPYRIDINE HCL 100 MG TABLET PO SCH ×3 (08:29→20:15)
[2016-12-26] MEDS: RANOLAZINE 500 MG SR TABLET PO SCH ×2 (08:29→20:15)
[2016-12-26] MEDS: FAMOTIDINE 20 MG TABLET PO SCH ×2 (08:29→20:15)
[2016-12-26] MEDS: DOCUSATE SODIUM 100 MG CAPSULE PO SCH ×2 (08:29→20:15)
[2016-12-26] MEDS: ATORVASTATIN CALCIUM 40 MG TABLET PO SCH (08:29)
[2016-12-26] MEDS: CITRIC ACID/SODIUM CITRATE 30 ML SOLUTION UDCUP PO SCH ×2 (08:30→20:15)
[2016-12-26] MEDS: DICLOFENAC SODIUM 1% 100 GM GEL [4GM] TP SCH (09:00)
[2016-12-26] MEDS: HYDROCODONE/ACETAMINOPHEN 5-325 MG TABLET PO PRN ×2 (15:13→20:16)
[2016-12-26] MEDS: SODIUM CHLORIDE 0.9% 1,000 ML IV SCH (17:07)
[2016-12-26] MEDS: CefTRIAXone 1 GM/DEXTROSE 50 ML IV SCH (20:15)
[2016-12-27] MEDS: HYDROCODONE/ACETAMINOPHEN 5-325 MG TABLET PO PRN (01:44)
[2016-12-27] MEDS: HYDROmorphone 2 MG/ML SYRINGE IVP PRN ×3 (04:37→22:15)
[2016-12-27] MEDS: CIPROFLOXACIN 400 MG/D5% WATER 200 ML IV SCH ×2 (04:37→15:03)
[2016-12-27 05:18] VITALS: BP 140/61
[2016-12-27 07:18] LABS: BASOPHILS # (AUTO) 0.06 K/uL (0.00-0.20); EOSINOPHILS # (AUTO) 0.29 K/uL (0.00-0.70); EOSINOPHILS % (AUTO) 4.57 % (1.0-6.0); HEMATOCRIT 35.7 % (41-53); HEMOGLOBIN 11.6 g/dL (13.5-17.5); LYMPHOCYTES # (AUTO) 0.7 K/uL (1.0-4.8); LYMPHOCYTES % (AUTO) 10.6 % (22.0-44.0); MEAN CORPUSCULAR HEMOGLOBIN 28.9 pg (26.0-34.0); MEAN CORPUSCULAR HGB CONC 32.5 G/dL (31.0-37.0); MEAN CORPUSCULAR VOLUME 89 fL (80-100); MONOCYTES # (AUTO) 0.6 K/uL (0.1-1.0); MONOCYTES % (AUTO) 10.2 % (2.0-9.0); NEUTROPHILS # (AUTO) 4.6 K/uL (1.8-7.7); NEUTROPHILS % (AUTO) 73.7 % (40.0-70.0); PLATELET COUNT (AUTO) 228 K/uL (150-450); RED BLOOD CELL COUNT(AUTO) 4.02 MIL/uL (4.50-5.90); RED CELL DISTRIBUTION WIDTH 14.6 % (11.5-14.5); WHITE BLOOD COUNT (AUTO) 6.3 K/uL (4.5-11.0)
[2016-12-27 07:35] LABS: ANION GAP 11 mmol/L (8-16); CALCIUM, TOTAL 7.5 mg/dL (8.8-10.5); CARBON DIOXIDE 23 mmol/L (22-29); CHLORIDE 106 mmol/L (98-107); CREATINE KINASE, TOTAL 52 U/L (39-308); CREATININE 3.52 mg/dL (0.60-1.30); GLOMERULAR FILTR. RATE CALC 17 mL/min (>60); POTASSIUM 4.6 mmol/L (3.5-5.1); SODIUM SERUM 140 mmol/L (136-145); UREA NITROGEN, BLOOD 49 mg/dL (7-18)
[2016-12-27 07:51] LABS: B-TYPE NATRIURETIC PEPTIDE 391 pg/mL (0-100)
[2016-12-27 08:00] VITALS: BP 150/73
[2016-12-27] MEDS: METOPROLOL TARTRATE 25 MG TABLET PO SCH ×2 (08:01→20:00)
[2016-12-27] MEDS: HEPARIN SODIUM,PORCINE 5,000 UNITS/ML VIAL SQ SCH ×2 (08:01→15:03)
[2016-12-27] MEDS: FOLIC ACID 1 MG TABLET PO SCH (08:01)
[2016-12-27] MEDS: DOCUSATE SODIUM 100 MG CAPSULE PO SCH ×2 (08:01→20:00)
[2016-12-27] MEDS: CLOPIDOGREL BISULFATE 75 MG TABLET PO SCH (08:01)
[2016-12-27] MEDS: TAMSULOSIN HCL 0.4 MG CAPSULE PO SCH (08:01)
[2016-12-27] MEDS: ATORVASTATIN CALCIUM 40 MG TABLET PO SCH (08:01)
[2016-12-27] MEDS: CALCIUM CARBONATE 500 MG CHEWABLE TABLET CHEW PRN ×2 (08:01→20:00)
[2016-12-27] MEDS: FAMOTIDINE 20 MG TABLET PO SCH ×2 (08:01→20:00)
[2016-12-27] MEDS: MULTIVITAMINS, THERAPEUTIC TABLET PO SCH (08:01)
[2016-12-27] MEDS: CITRIC ACID/SODIUM CITRATE 30 ML SOLUTION UDCUP PO SCH ×2 (08:02→20:02)
[2016-12-27] MEDS: RANOLAZINE 500 MG SR TABLET PO SCH ×2 (08:02→20:00)
[2016-12-27] MEDS: AMIODARONE HCL 200 MG TABLET PO SCH (08:02)
[2016-12-27] MEDS: PHENAZOPYRIDINE HCL 100 MG TABLET PO SCH ×3 (08:02→20:00)
[2016-12-27] MEDS: PANTOPRAZOLE SODIUM 40 MG/VIAL IVP SCH (08:02)
[2016-12-27] MEDS: DICLOFENAC SODIUM 1% 100 GM GEL [4GM] TP SCH (08:03)
[2016-12-27] MEDS: SODIUM CHLORIDE 0.9% 1,000 ML IV SCH (10:22)
[2016-12-27 11:26] VITALS: BP 133/65
[2016-12-27 15:57] VITALS: BP 97/56
[2016-12-27 19:45] VITALS: BP 172/77
[2016-12-27] MEDS: CefTRIAXone 1 GM/DEXTROSE 50 ML IV SCH (20:00)
[2016-12-27 23:45] VITALS: BP 160/80
[2016-12-28] VITALS (7 sets, daily range): BP systolic 123–158; BP diastolic 51–92
[2016-12-28] MEDS: HEPARIN SODIUM,PORCINE 5,000 UNITS/ML VIAL SQ SCH ×4 (00:08→23:50)
[2016-12-28] MEDS: CALCIUM CARBONATE 500 MG CHEWABLE TABLET CHEW PRN ×2 (01:54→20:14)
[2016-12-28] MEDS: HYDROmorphone 2 MG/ML SYRINGE IVP PRN ×4 (01:54→20:16)
[2016-12-28] MEDS: SODIUM CHLORIDE 0.9% 1,000 ML IV SCH (01:59)
[2016-12-28] MEDS: CIPROFLOXACIN 400 MG/D5% WATER 200 ML IV SCH ×2 (04:47→15:41)
[2016-12-28 06:47] LABS: BASOPHILS # (AUTO) 0.06 K/uL (0.00-0.20); EOSINOPHILS # (AUTO) 0.27 K/uL (0.00-0.70); EOSINOPHILS % (AUTO) 4.33 % (1.0-6.0); HEMATOCRIT 33.3 % (41-53); LYMPHOCYTES # (AUTO) 0.6 K/uL (1.0-4.8); LYMPHOCYTES % (AUTO) 9.7 % (22.0-44.0); MEAN CORPUSCULAR HEMOGLOBIN 29.6 pg (26.0-34.0); MEAN CORPUSCULAR VOLUME 90 fL (80-100); MONOCYTES # (AUTO) 0.6 K/uL (0.1-1.0); MONOCYTES % (AUTO) 10.1 % (2.0-9.0); NEUTROPHILS # (AUTO) 4.6 K/uL (1.8-7.7); NEUTROPHILS % (AUTO) 74.9 % (40.0-70.0); PLATELET COUNT (AUTO) 202 K/uL (150-450); RED BLOOD CELL COUNT(AUTO) 3.71 MIL/uL (4.50-5.90); RED CELL DISTRIBUTION WIDTH 14.5 % (11.5-14.5); WHITE BLOOD COUNT (AUTO) 6.2 K/uL (4.5-11.0)
[2016-12-28 07:23] LABS: ALBUMIN 2.6 g/dL (3.4-5.0); BILIRUBIN,TOTAL 0.4 mg/dL (0.1-1.0); CALCIUM, TOTAL 7.4 mg/dL (8.8-10.5); MAGNESIUM 1.4 mg/dL (1.80-2.40); POTASSIUM 4.3 mmol/L (3.5-5.1); TOTAL PROTEIN, SERUM 5.6 g/dL (6.4-8.2)
[2016-12-28] MEDS: DOCUSATE SODIUM 100 MG CAPSULE PO SCH ×2 (09:00→20:13)
[2016-12-28] MEDS: PANTOPRAZOLE SODIUM 40 MG/VIAL IVP SCH (09:03)
[2016-12-28] MEDS: ATORVASTATIN CALCIUM 40 MG TABLET PO SCH (09:04)
[2016-12-28] MEDS: TAMSULOSIN HCL 0.4 MG CAPSULE PO SCH (09:04)
[2016-12-28] MEDS: FOLIC ACID 1 MG TABLET PO SCH (09:04)
[2016-12-28] MEDS: CITRIC ACID/SODIUM CITRATE 30 ML SOLUTION UDCUP PO SCH ×2 (09:04→20:17)
[2016-12-28] MEDS: FAMOTIDINE 20 MG TABLET PO SCH ×2 (09:05→20:13)
[2016-12-28] MEDS: METOPROLOL TARTRATE 25 MG TABLET PO SCH ×2 (09:05→20:13)
[2016-12-28] MEDS: MULTIVITAMINS, THERAPEUTIC TABLET PO SCH (09:05)
[2016-12-28] MEDS: PHENAZOPYRIDINE HCL 100 MG TABLET PO SCH ×3 (09:05→20:13)
[2016-12-28] MEDS: RANOLAZINE 500 MG SR TABLET PO SCH ×2 (09:05→20:14)
[2016-12-28] MEDS: CLOPIDOGREL BISULFATE 75 MG TABLET PO SCH (09:05)
[2016-12-28] MEDS: AMIODARONE HCL 200 MG TABLET PO SCH (09:05)
[2016-12-28] MEDS: DICLOFENAC SODIUM 1% 100 GM GEL [4GM] TP SCH (09:07)
[2016-12-28] MEDS: HYDROCODONE/ACETAMINOPHEN 5-325 MG TABLET PO PRN ×2 (11:49→23:51)
[2016-12-28] MEDS ORDERED: MAGNESIUM SULFATE 4 GM/WATER 100 ML IV ONE (13:45)
[2016-12-28] MEDS: ONDANSETRON HCL 4 MG/2 ML VIAL IVP PRN (15:41)
[2016-12-28] MEDS: CefTRIAXone 1 GM/DEXTROSE 50 ML IV SCH (22:06)
[2016-12-28] MEDS: ZOLPIDEM TARTRATE 5 MG TABLET PO PRN (23:50)
[2016-12-29] MEDS: HYDROmorphone 2 MG/ML SYRINGE IVP PRN ×5 (04:44→23:40)
[2016-12-29 05:15] VITALS: BP 129/64
[2016-12-29] MEDS ORDERED: SODIUM CHLORIDE 0.9% 1,000 ML IV ONE (06:30)
[2016-12-29 07:35] VITALS: BP 130/63
[2016-12-29] MEDS: HEPARIN SODIUM,PORCINE 5,000 UNITS/ML VIAL SQ SCH ×3 (08:41→23:35)
[2016-12-29] MEDS: CALCIUM CARBONATE 500 MG CHEWABLE TABLET CHEW PRN ×2 (08:41→23:35)
[2016-12-29] MEDS: PANTOPRAZOLE SODIUM 40 MG/VIAL IVP SCH (08:41)
[2016-12-29] MEDS: ATORVASTATIN CALCIUM 40 MG TABLET PO SCH (08:41)
[2016-12-29] MEDS: MULTIVITAMINS, THERAPEUTIC TABLET PO SCH (08:42)
[2016-12-29] MEDS: AMIODARONE HCL 200 MG TABLET PO SCH (08:42)
[2016-12-29] MEDS: TAMSULOSIN HCL 0.4 MG CAPSULE PO SCH (08:42)
[2016-12-29] MEDS: DOCUSATE SODIUM 100 MG CAPSULE PO SCH ×2 (08:42→20:25)
[2016-12-29] MEDS: FAMOTIDINE 20 MG TABLET PO SCH ×2 (08:42→20:25)
[2016-12-29] MEDS: METOPROLOL TARTRATE 25 MG TABLET PO SCH ×2 (08:42→20:26)
[2016-12-29] MEDS: PHENAZOPYRIDINE HCL 100 MG TABLET PO SCH ×3 (08:43→20:25)
[2016-12-29] MEDS: CITRIC ACID/SODIUM CITRATE 30 ML SOLUTION UDCUP PO SCH (08:43)
[2016-12-29] MEDS: RANOLAZINE 500 MG SR TABLET PO SCH ×2 (08:44→20:25)
[2016-12-29] MEDS: FOLIC ACID 1 MG TABLET PO SCH (08:53)
[2016-12-29] MEDS: DICLOFENAC SODIUM 1% 100 GM GEL [4GM] TP SCH (09:00)
[2016-12-29 11:40] VITALS: BP 125/57
[2016-12-29 15:56] VITALS: BP 142/69
[2016-12-29 19:55] VITALS: BP 128/58
[2016-12-29] MEDS: CefTRIAXone 1 GM/DEXTROSE 50 ML IV SCH (20:25)
[2016-12-29] MEDS: ZOLPIDEM TARTRATE 5 MG TABLET PO PRN (23:35)
[2016-12-29 23:37] VITALS: BP 138/95
[2016-12-30] MEDS ORDERED: ONDANSETRON HCL 4 MG/2 ML VIAL IVP ONE (00:48)
[2016-12-30] MEDS ORDERED: EPHEDrine SULFATE 50 MG/ML VIAL IM ONE (00:48)
[2016-12-30] MEDS ORDERED: LIDOCAINE HCL/PF 2% 5 ML VIAL IM ONE (00:48)
[2016-12-30] MEDS ORDERED: 0.9% SODIUM CHLORIDE 10 ML VIAL IVP ONE (00:48)
[2016-12-30] MEDS ORDERED: PROPOFOL 1% 20 ML VIAL IVP ONE (00:48)
[2016-12-30] MEDS ORDERED: ROCURONIUM BROMIDE 10 MG/ML 5 ML VIAL IVP ONE (00:48)
[2016-12-30 04:56] VITALS: BP 131/63
[2016-12-30] MEDS: HYDROmorphone 2 MG/ML SYRINGE IVP PRN ×3 (04:58→17:00)
[2016-12-30 07:21] VITALS: BP 134/58
[2016-12-30] MEDS: PHENAZOPYRIDINE HCL 100 MG TABLET PO SCH ×3 (08:43→19:50)
[2016-12-30] MEDS: AMIODARONE HCL 200 MG TABLET PO SCH (08:43)
[2016-12-30] MEDS: ATORVASTATIN CALCIUM 40 MG TABLET PO SCH (08:43)
[2016-12-30] MEDS: MULTIVITAMINS, THERAPEUTIC TABLET PO SCH (08:43)
[2016-12-30] MEDS: RANOLAZINE 500 MG SR TABLET PO SCH ×2 (08:43→19:50)
[2016-12-30] MEDS: FOLIC ACID 1 MG TABLET PO SCH (08:43)
[2016-12-30] MEDS: CALCIUM CARBONATE 500 MG CHEWABLE TABLET CHEW PRN (08:43)
[2016-12-30] MEDS: TAMSULOSIN HCL 0.4 MG CAPSULE PO SCH (08:43)
[2016-12-30] MEDS: PANTOPRAZOLE SODIUM 40 MG/VIAL IVP SCH (08:43)
[2016-12-30] MEDS: FAMOTIDINE 20 MG TABLET PO SCH ×2 (08:43→19:50)
[2016-12-30] MEDS: METOPROLOL TARTRATE 25 MG TABLET PO SCH ×2 (08:43→19:50)
[2016-12-30] MEDS: HEPARIN SODIUM,PORCINE 5,000 UNITS/ML VIAL SQ SCH ×3 (08:44→22:45)
[2016-12-30] MEDS: DOCUSATE SODIUM 100 MG CAPSULE PO SCH ×2 (08:44→19:50)
[2016-12-30] MEDS: DICLOFENAC SODIUM 1% 100 GM GEL [4GM] TP SCH (09:00)
[2016-12-30 11:37] VITALS: BP 138/66
[2016-12-30 16:00] VITALS: BP 135/62
[2016-12-30] MEDS: ZOLPIDEM TARTRATE 5 MG TABLET PO PRN (19:50)
[2016-12-30] MEDS: CefTRIAXone 1 GM/DEXTROSE 50 ML IV SCH (19:50)
[2016-12-30 20:03] VITALS: BP 144/67
[2016-12-30] MEDS: LORazepam 1 MG TABLET PO PRN (22:14)
[2016-12-30 23:32] VITALS: BP 137/69
[2016-12-31] MEDS ORDERED: FentaNYL CITRATE-PF 100 MCG/2 ML VIAL IVP ONE (00:46)
[2016-12-31] MEDS ORDERED: MIDAZOLAM HCL 2 MG/2 ML VIAL IVP ONE (00:46)
[2016-12-31 04:25] VITALS: BP 153/64
[2016-12-31] MEDS ORDERED: SODIUM CHLORIDE 0.9% 1,000 ML IV ONE ×3 (06:30→09:27)
[2016-12-31 06:32] LABS: BASOPHILS % (AUTO) 0.9 % (0.0-2.0); EOSINOPHILS % (AUTO) 3.7 % (1.0-6.0); HEMATOCRIT 33.4 % (41-53); HEMOGLOBIN 10.7 g/dL (13.5-17.5); LYMPHOCYTES # (AUTO) 0.9 K/uL (1.0-4.8); LYMPHOCYTES % (AUTO) 11.5 % (22.0-44.0); MEAN CORPUSCULAR HEMOGLOBIN 28.7 pg (26.0-34.0); MEAN CORPUSCULAR VOLUME 90 fL (80-100); MONOCYTES # (AUTO) 0.7 K/uL (0.1-1.0); MONOCYTES % (AUTO) 9.1 % (2.0-9.0); NEUTROPHILS # (AUTO) 5.7 K/uL (1.8-7.7); NEUTROPHILS % (AUTO) 74.8 % (40.0-70.0); PLATELET COUNT (AUTO) 208 K/uL (150-450); RED BLOOD CELL COUNT(AUTO) 3.72 MIL/uL (4.50-5.90); RED CELL DISTRIBUTION WIDTH 14.9 % (11.5-14.5); WHITE BLOOD COUNT (AUTO) 7.7 K/uL (4.5-11.0)
[2016-12-31 07:04] LABS: CALCIUM, TOTAL 7.6 mg/dL (8.8-10.5); CREATININE 2.4 mg/dL (0.60-1.30); MAGNESIUM 1.7 mg/dL (1.80-2.40); PHOSPHORUS 2.4 mg/dL (2.5-4.9); POTASSIUM 4.4 mmol/L (3.5-5.1)
[2016-12-31] MEDS ORDERED: OXYGEN THERAPY IH SCH (08:08)
[2016-12-31] MEDS ORDERED: HYDROmorphone 2 MG/ML SYRINGE IVP PRN (08:15)
[2016-12-31] MEDS ORDERED: MEPERIDINE-PF 25 MG/ML SYRINGE IVP PRN (08:15)
[2016-12-31] MEDS ORDERED: FentaNYL CITRATE-PF 100 MCG/2 ML VIAL IVP PRN (08:15)
[2016-12-31] MEDS: DICLOFENAC SODIUM 1% 100 GM GEL [4GM] TP SCH (09:00)
[2016-12-31] MEDS ORDERED: LACTULOSE 20 GM/30 ML SOLUTION UDCUP PO PRN (10:15)
[2016-12-31] MEDS ORDERED: NITROGLYCERIN 0.4 MG SUBLINGUAL TABLET #25 SL PRN (10:15)
[2016-12-31] MEDS ORDERED: HYDROCODONE/ACETAMINOPHEN 5-325 MG TABLET PO PRN (10:15)
[2016-12-31 11:10] VITALS: BP 164/75
[2016-12-31 11:22] LABS: BASOPHILS % (AUTO) 0.5 % (0.0-2.0); HEMATOCRIT 35.8 % (41-53); HEMOGLOBIN 11.4 g/dL (13.5-17.5); LYMPHOCYTES # (AUTO) 0.7 K/uL (1.0-4.8); MEAN CORPUSCULAR HEMOGLOBIN 28.4 pg (26.0-34.0); MEAN CORPUSCULAR HGB CONC 31.8 G/dL (31.0-37.0); MEAN CORPUSCULAR VOLUME 89 fL (80-100); MONOCYTES # (AUTO) 0.6 K/uL (0.1-1.0); MONOCYTES % (AUTO) 7.5 % (2.0-9.0); NEUTROPHILS # (AUTO) 5.8 K/uL (1.8-7.7); PLATELET COUNT (AUTO) 216 K/uL (150-450); RED BLOOD CELL COUNT(AUTO) 4.02 MIL/uL (4.50-5.90); RED CELL DISTRIBUTION WIDTH 14.8 % (11.5-14.5); WHITE BLOOD COUNT (AUTO) 7.4 K/uL (4.5-11.0)
[2016-12-31 11:33] LABS: CALCIUM, TOTAL 7.4 mg/dL (8.8-10.5); CREATININE 2.53 mg/dL (0.60-1.30); POTASSIUM 4.2 mmol/L (3.5-5.1)
[2016-12-31] MEDS: MULTIVITAMINS, THERAPEUTIC TABLET PO SCH (11:59)
[2016-12-31] MEDS: METOPROLOL TARTRATE 25 MG TABLET PO SCH ×2 (12:00→19:41)
[2016-12-31] MEDS: FAMOTIDINE 20 MG TABLET PO SCH ×2 (12:00→19:41)
[2016-12-31] MEDS: HEPARIN SODIUM,PORCINE 5,000 UNITS/ML VIAL SQ SCH ×3 (12:00→23:17)
[2016-12-31] MEDS: PANTOPRAZOLE SODIUM 40 MG/VIAL IVP SCH (12:00)
[2016-12-31] MEDS: FOLIC ACID 1 MG TABLET PO SCH (12:00)
[2016-12-31] MEDS: PrednisoLONE ACETATE 1% 5 ML OPHTHALMIC SUSPENSION OD SCH ×3 (12:01→19:41)
[2016-12-31] MEDS: RANOLAZINE 500 MG SR TABLET PO SCH ×2 (12:01→19:41)
[2016-12-31] MEDS: ATORVASTATIN CALCIUM 40 MG TABLET PO SCH (12:06)
[2016-12-31] MEDS: AMIODARONE HCL 200 MG TABLET PO SCH (12:06)
[2016-12-31 15:37] VITALS: BP 169/79
[2016-12-31] MEDS: METOPROLOL SUCCINATE 25 MG ER TABLET PO SCH (16:50)
[2016-12-31] MEDS: HYDROmorphone 2 MG/ML SYRINGE IVP PRN ×2 (16:50→22:32)
[2016-12-31] MEDS ORDERED: MAGNESIUM SULFATE 1 GM in DEXTROSE 5%-WATER 50 ML IV ONE (19:30)
[2016-12-31] MEDS: CefTRIAXone 1 GM/DEXTROSE 50 ML IV SCH (19:40)
[2016-12-31 19:57] VITALS: BP 156/78
[2016-12-31] MEDS: LORazepam 1 MG TABLET PO PRN (22:13)
[2016-12-31 23:48] VITALS: BP 143/71
[2017-01-01] MEDS: ZOLPIDEM TARTRATE 5 MG TABLET PO PRN (01:57)
[2017-01-01 05:13] VITALS: BP 103/64
[2017-01-01 06:45] LABS: EOSINOPHILS % (AUTO) 1.2 % (1.0-6.0); HEMATOCRIT 33.8 % (41-53); HEMOGLOBIN 10.8 g/dL (13.5-17.5); LYMPHOCYTES # (AUTO) 0.6 K/uL (1.0-4.8); LYMPHOCYTES % (AUTO) 5.9 % (22.0-44.0); MEAN CORPUSCULAR HEMOGLOBIN 28.6 pg (26.0-34.0); MEAN CORPUSCULAR HGB CONC 32.1 G/dL (31.0-37.0); MEAN CORPUSCULAR VOLUME 89 fL (80-100); MONOCYTES # (AUTO) 0.7 K/uL (0.1-1.0); MONOCYTES % (AUTO) 7.3 % (2.0-9.0); NEUTROPHILS # (AUTO) 8.5 K/uL (1.8-7.7); PLATELET COUNT (AUTO) 217 K/uL (150-450); RED BLOOD CELL COUNT(AUTO) 3.78 MIL/uL (4.50-5.90); RED CELL DISTRIBUTION WIDTH 14.8 % (11.5-14.5)
[2017-01-01 06:47] LABS: NEUTROPHILS % (AUTO) 85.6 % (40.0-70.0)
[2017-01-01 07:00] VITALS: BP 137/68
[2017-01-01 07:05] LABS: ALBUMIN 2.6 g/dL (3.4-5.0); BILIRUBIN,TOTAL 0.6 mg/dL (0.1-1.0); CALCIUM, TOTAL 7.5 mg/dL (8.8-10.5); CREATININE 2.3 mg/dL (0.60-1.30); MAGNESIUM 1.7 mg/dL (1.80-2.40); POTASSIUM 4.6 mmol/L (3.5-5.1); TOTAL PROTEIN, SERUM 5.7 g/dL (6.4-8.2)
[2017-01-01] MEDS: HEPARIN SODIUM,PORCINE 5,000 UNITS/ML VIAL SQ SCH ×3 (07:53→23:17)
[2017-01-01] MEDS: PANTOPRAZOLE SODIUM 40 MG/VIAL IVP SCH (07:53)
[2017-01-01] MEDS: METOPROLOL SUCCINATE 25 MG ER TABLET PO SCH (07:54)
[2017-01-01] MEDS: PrednisoLONE ACETATE 1% 5 ML OPHTHALMIC SUSPENSION OD SCH ×4 (07:54→19:28)
[2017-01-01] MEDS: FOLIC ACID 1 MG TABLET PO SCH (07:54)
[2017-01-01] MEDS: ATORVASTATIN CALCIUM 40 MG TABLET PO SCH (07:54)
[2017-01-01] MEDS: AMIODARONE HCL 200 MG TABLET PO SCH (07:55)
[2017-01-01] MEDS: MULTIVITAMINS, THERAPEUTIC TABLET PO SCH (07:55)
[2017-01-01] MEDS: RANOLAZINE 500 MG SR TABLET PO SCH ×2 (07:55→19:27)
[2017-01-01] MEDS: FAMOTIDINE 20 MG TABLET PO SCH ×2 (07:55→19:27)
[2017-01-01] MEDS: METOPROLOL TARTRATE 25 MG TABLET PO SCH ×2 (07:55→19:27)
[2017-01-01] MEDS: DICLOFENAC SODIUM 1% 100 GM GEL [4GM] TP SCH (07:56)
[2017-01-01] MEDS: INSULIN DETEMIR 100 UNITS/ML SQ SCH (08:04)
[2017-01-01] MEDS: HYDROmorphone 2 MG/ML SYRINGE IVP PRN ×2 (08:14→19:28)
[2017-01-01 11:15] VITALS: BP 134/61
[2017-01-01 15:20] VITALS: BP 133/56
[2017-01-01] MEDS: LORazepam 1 MG TABLET PO PRN (19:27)
[2017-01-01] MEDS: CefTRIAXone 1 GM/DEXTROSE 50 ML IV SCH (19:27)
[2017-01-01 19:30] VITALS: BP 135/66
[2017-01-01 23:40] VITALS: BP 136/67
[2017-01-02] MEDS: HYDROmorphone 2 MG/ML SYRINGE IVP PRN ×4 (00:08→20:30)
[2017-01-02] MEDS: ZOLPIDEM TARTRATE 5 MG TABLET PO PRN ×2 (00:08→19:29)
[2017-01-02 04:23] VITALS: BP 145/71
[2017-01-02 06:27] LABS: BASOPHILS % (AUTO) 0.8 % (0.0-2.0); EOSINOPHILS % (AUTO) 1.6 % (1.0-6.0); HEMATOCRIT 32.9 % (41-53); HEMOGLOBIN 10.7 g/dL (13.5-17.5); LYMPHOCYTES # (AUTO) 0.9 K/uL (1.0-4.8); LYMPHOCYTES % (AUTO) 9.3 % (22.0-44.0); MEAN CORPUSCULAR HEMOGLOBIN 29.1 pg (26.0-34.0); MEAN CORPUSCULAR HGB CONC 32.6 G/dL (31.0-37.0); MEAN CORPUSCULAR VOLUME 89 fL (80-100); MONOCYTES # (AUTO) 0.9 K/uL (0.1-1.0); NEUTROPHILS # (AUTO) 7.3 K/uL (1.8-7.7); NEUTROPHILS % (AUTO) 78.3 % (40.0-70.0); PLATELET COUNT (AUTO) 206 K/uL (150-450); RED BLOOD CELL COUNT(AUTO) 3.68 MIL/uL (4.50-5.90); RED CELL DISTRIBUTION WIDTH 15.2 % (11.5-14.5); WHITE BLOOD COUNT (AUTO) 9.3 K/uL (4.5-11.0)
[2017-01-02 06:59] LABS: CALCIUM, TOTAL 7.5 mg/dL (8.8-10.5); CREATININE 2.41 mg/dL (0.60-1.30); MAGNESIUM 1.7 mg/dL (1.80-2.40); PHOSPHORUS 2.5 mg/dL (2.5-4.9); POTASSIUM 4.5 mmol/L (3.5-5.1)
[2017-01-02 07:22] VITALS: BP 145/75
[2017-01-02] MEDS: METOPROLOL TARTRATE 25 MG TABLET PO SCH ×2 (08:36→19:29)
[2017-01-02] MEDS: AMIODARONE HCL 200 MG TABLET PO SCH (08:36)
[2017-01-02] MEDS: DOCUSATE SODIUM 100 MG CAPSULE PO PRN (08:37)
[2017-01-02] MEDS: FAMOTIDINE 20 MG TABLET PO SCH ×2 (08:37→19:29)
[2017-01-02] MEDS: FOLIC ACID 1 MG TABLET PO SCH (08:37)
[2017-01-02] MEDS: PrednisoLONE ACETATE 1% 5 ML OPHTHALMIC SUSPENSION OD SCH ×4 (08:37→19:29)
[2017-01-02] MEDS: HEPARIN SODIUM,PORCINE 5,000 UNITS/ML VIAL SQ SCH ×3 (08:37→23:38)
[2017-01-02] MEDS: PANTOPRAZOLE SODIUM 40 MG/VIAL IVP SCH (08:37)
[2017-01-02] MEDS: METOPROLOL SUCCINATE 25 MG ER TABLET PO SCH (08:38)
[2017-01-02] MEDS: MULTIVITAMINS, THERAPEUTIC TABLET PO SCH (08:38)
[2017-01-02] MEDS: RANOLAZINE 500 MG SR TABLET PO SCH ×2 (08:38→19:29)
[2017-01-02] MEDS: ATORVASTATIN CALCIUM 40 MG TABLET PO SCH (08:47)
[2017-01-02] MEDS ORDERED: SODIUM CHLORIDE 0.9% 500 ML IV ONE (08:47)
[2017-01-02] MEDS: INSULIN DETEMIR 100 UNITS/ML SQ SCH (08:51)
[2017-01-02] MEDS: DICLOFENAC SODIUM 1% 100 GM GEL [4GM] TP SCH (10:45)
[2017-01-02 11:18] VITALS: BP 117/58
[2017-01-02] MEDS ORDERED: MAGNESIUM SULFATE 3 GM in DEXTROSE 5%-WATER 100 ML IV ONE (13:00)
[2017-01-02] MEDS: MAGNESIUM HYDROXIDE SUSPENSION 30 ML UDCUP PO PRN (14:19)
[2017-01-02 15:17] VITALS: BP 127/63
[2017-01-02 16:42] LABS: GLUCOSE,POINT OF CARE 126 MG/DL (70-110)
[2017-01-02 16:42] LABS: GLUCOSE,POINT OF CARE 106 MG/DL (70-110)
[2017-01-02 19:24] VITALS: BP 146/62
[2017-01-02] MEDS: CefTRIAXone 1 GM/DEXTROSE 50 ML IV SCH (19:28)
[2017-01-02 23:35] VITALS: BP 137/74
[2017-01-03] MEDS: LORazepam 1 MG TABLET PO PRN (03:21)
[2017-01-03 04:45] VITALS: BP 123/52
[2017-01-03 06:25] LABS: BASOPHILS # (AUTO) 0.05 K/uL (0.00-0.20); BASOPHILS % (AUTO) 0.6 % (0.0-2.0); HEMATOCRIT 35.4 % (41-53); HEMOGLOBIN 11.4 g/dL (13.5-17.5); LYMPHOCYTES # (AUTO) 0.9 K/uL (1.0-4.8); LYMPHOCYTES % (AUTO) 10.8 % (22.0-44.0); MEAN CORPUSCULAR HEMOGLOBIN 28.9 pg (26.0-34.0); MEAN CORPUSCULAR HGB CONC 32.2 G/dL (31.0-37.0); MEAN CORPUSCULAR VOLUME 90 fL (80-100); MONOCYTES # (AUTO) 0.7 K/uL (0.1-1.0); MONOCYTES % (AUTO) 8.8 % (2.0-9.0); NEUTROPHILS # (AUTO) 6.2 K/uL (1.8-7.7); NEUTROPHILS % (AUTO) 76.1 % (40.0-70.0); PLATELET COUNT (AUTO) 240 K/uL (150-450); RED BLOOD CELL COUNT(AUTO) 3.93 MIL/uL (4.50-5.90); WHITE BLOOD COUNT (AUTO) 8.1 K/uL (4.5-11.0)
[2017-01-03 06:35] LABS: CALCIUM, TOTAL 7.7 mg/dL (8.8-10.5); CREATININE 2.31 mg/dL (0.60-1.30); MAGNESIUM 2.2 mg/dL (1.80-2.40); POTASSIUM 4.6 mmol/L (3.5-5.1)
[2017-01-03 06:57] LABS: GLUCOSE COMMENT 1 Received Meds; GLUCOSE,POINT OF CARE 107 MG/DL (70-110)
[2017-01-03 07:10] VITALS: BP 136/71
[2017-01-03] MEDS: PrednisoLONE ACETATE 1% 5 ML OPHTHALMIC SUSPENSION OD SCH ×4 (08:36→19:51)
[2017-01-03] MEDS: METOPROLOL TARTRATE 25 MG TABLET PO SCH ×2 (08:36→19:51)
[2017-01-03] MEDS: HEPARIN SODIUM,PORCINE 5,000 UNITS/ML VIAL SQ SCH ×3 (08:36→23:28)
[2017-01-03] MEDS: ATORVASTATIN CALCIUM 40 MG TABLET PO SCH (08:36)
[2017-01-03] MEDS: AMIODARONE HCL 200 MG TABLET PO SCH (08:36)
[2017-01-03] MEDS: PANTOPRAZOLE SODIUM 40 MG/VIAL IVP SCH (08:36)
[2017-01-03] MEDS: FOLIC ACID 1 MG TABLET PO SCH (08:37)
[2017-01-03] MEDS: METOPROLOL SUCCINATE 25 MG ER TABLET PO SCH (08:37)
[2017-01-03] MEDS: FAMOTIDINE 20 MG TABLET PO SCH ×2 (08:37→19:51)
[2017-01-03] MEDS: MULTIVITAMINS, THERAPEUTIC TABLET PO SCH (08:37)
[2017-01-03] MEDS: RANOLAZINE 500 MG SR TABLET PO SCH ×2 (08:37→19:51)
[2017-01-03] MEDS: HYDROmorphone 2 MG/ML SYRINGE IVP PRN ×4 (08:38→23:28)
[2017-01-03] MEDS: INSULIN DETEMIR 100 UNITS/ML SQ SCH (08:42)
[2017-01-03] MEDS: DICLOFENAC SODIUM 1% 100 GM GEL [4GM] TP SCH (09:00)
[2017-01-03 11:18] VITALS: BP 147/77
[2017-01-03 15:41] VITALS: BP 107/56
[2017-01-03] MEDS ORDERED: SODIUM CHLORIDE 0.9% 500 ML IV ONE (19:39)
[2017-01-03] MEDS: CefTRIAXone 1 GM/DEXTROSE 50 ML IV SCH (19:50)
[2017-01-03 20:15] VITALS: BP 112/57
[2017-01-03 23:05] VITALS: BP 134/64
[2017-01-03] MEDS: ONDANSETRON HCL 4 MG/2 ML VIAL IVP PRN (23:33)
[2017-01-04] VITALS (12 sets, daily range): BP systolic 124–166; BP diastolic 53–74
[2017-01-04] MEDS: CALCIUM CARBONATE 500 MG CHEWABLE TABLET CHEW PRN ×2 (05:11→20:30)
[2017-01-04] MEDS: HYDROmorphone 2 MG/ML SYRINGE IVP PRN ×2 (05:11→09:28)
[2017-01-04 06:52] LABS: GLUCOSE,POINT OF CARE 92 MG/DL (70-110)
[2017-01-04] MEDS: HEPARIN SODIUM,PORCINE 5,000 UNITS/ML VIAL SQ SCH ×3 (08:00→23:23)
[2017-01-04 08:29] LABS: INR 1.1 (0.9-1.1); PROTHROMBIN TIME 11.4 SEC (9.4-11.6)
[2017-01-04] MEDS: PrednisoLONE ACETATE 1% 5 ML OPHTHALMIC SUSPENSION OD SCH ×4 (09:19→20:29)
[2017-01-04] MEDS: ATORVASTATIN CALCIUM 40 MG TABLET PO SCH (09:20)
[2017-01-04] MEDS: MULTIVITAMINS, THERAPEUTIC TABLET PO SCH (09:20)
[2017-01-04] MEDS: FAMOTIDINE 20 MG TABLET PO SCH ×2 (09:20→20:30)
[2017-01-04] MEDS: METOPROLOL SUCCINATE 25 MG ER TABLET PO SCH (09:20)
[2017-01-04] MEDS: AMIODARONE HCL 200 MG TABLET PO SCH (09:20)
[2017-01-04] MEDS: RANOLAZINE 500 MG SR TABLET PO SCH ×2 (09:20→20:30)
[2017-01-04] MEDS: FOLIC ACID 1 MG TABLET PO SCH (09:20)
[2017-01-04] MEDS: DOCUSATE SODIUM 100 MG CAPSULE PO PRN (09:21)
[2017-01-04] MEDS: PANTOPRAZOLE SODIUM 40 MG/VIAL IVP SCH (09:21)
[2017-01-04] MEDS: METOPROLOL TARTRATE 25 MG TABLET PO SCH ×2 (09:21→20:30)
[2017-01-04] MEDS: INSULIN DETEMIR 100 UNITS/ML SQ SCH (09:25)
[2017-01-04] MEDS: DICLOFENAC SODIUM 1% 100 GM GEL [4GM] TP SCH (09:26)
[2017-01-04 11:23] LABS: GLUCOSE,POINT OF CARE 109 MG/DL (70-110)
[2017-01-04] MEDS ORDERED: LIDOCAINE HCL/PF 1% 30 ML VIAL ONE ×2 (15:55→17:35)
[2017-01-04] MEDS ORDERED: IOHEXOL 240 MG/ML 50 ML VIAL ONE (15:56)
[2017-01-04] MEDS ORDERED: FentaNYL CITRATE-PF 100 MCG/2 ML VIAL ONE ×3 (17:33→19:43)
[2017-01-04] MEDS ORDERED: GELATIN SPONGE,ABSORBABLE 12-7 MM TP ONE (17:33)
[2017-01-04] MEDS ORDERED: SODIUM BICARBONATE 50 MEQ/50 ML VIAL ONE (17:34)
[2017-01-04] MEDS ORDERED: MIDAZOLAM HCL 2 MG/2 ML VIAL ONE ×3 (17:35→19:43)
[2017-01-04] MEDS: CefTRIAXone 1 GM/DEXTROSE 50 ML IV SCH ×2 (18:45→20:00)
[2017-01-04] MEDS ORDERED: SODIUM CHLORIDE 0.9% 250 ML IV ONE (19:00)
[2017-01-04] MEDS ORDERED: LIDOCAINE 1% 30 ML/SOD BICARB 8.4% 4 ML SQ ONE (19:10)
[2017-01-04] MEDS ORDERED: IOHEXOL 240 MG/ML 50 ML VIAL IVP ONE (19:15)
[2017-01-04] MEDS ORDERED: MIDAZOLAM HCL 2 MG/2 ML VIAL IVP ONE (19:30)
[2017-01-04] MEDS ORDERED: FentaNYL CITRATE-PF 100 MCG/2 ML VIAL IVP ONE (19:30)
[2017-01-05] VITALS: BP 136/68
[2017-01-05] MEDS ORDERED: CLOPIDOGREL BISULFATE 75 MG TABLET PO SCH (09:00)
[2017-01-22] MEDS ORDERED: ZOLP5 PO (00:30)
[2017-01-22] MEDS ORDERED: PANT40TA25 PO (00:30)
[2017-01-22] MEDS ORDERED: LORA1TAB3 PO (00:30)
== END 2017-01-05 00:57 | disposition home or self-care (01) | DRG 662 ==
LOC: EMS 17:30 → 6N 21:01
PROVIDERS: ADMIT Hospitalist; ATTEND Hospitalist
PROC: 0T9330Z Drainage of Right Kidney Pelvis with Drainage Device, Percutaneous Approach (ICD-10-PCS; 2016-12-20)
PROC: 0T9430Z Drainage of Left Kidney Pelvis with Drainage Device, Percutaneous Approach (ICD-10-PCS; 2016-12-20)
PROC: BT131ZZ Fluoroscopy of Bilateral Kidneys using Low Osmolar Contrast (ICD-10-PCS; 2016-12-20)
PROC: 0TP5X0Z Removal of Drainage Device from Kidney, External Approach (ICD-10-PCS; principal; 2016-12-23)
PROC: 0T25X0Z Change Drainage Device in Kidney, External Approach (ICD-10-PCS; 2016-12-24)
PROC: 0T9430Z Drainage of Left Kidney Pelvis with Drainage Device, Percutaneous Approach (ICD-10-PCS; 2016-12-24)
PROC: 0TJB8ZZ Inspection of Bladder, Via Natural or Artificial Opening Endoscopic (ICD-10-PCS; 2016-12-24)
PROC: 0TCB0ZZ Extirpation of Matter from Bladder, Open Approach (ICD-10-PCS; 2016-12-31)
PROC: 0TP5X0Z Removal of Drainage Device from Kidney, External Approach (ICD-10-PCS; 2017-01-04)
PROC: 0T788DZ Dilation of Bilateral Ureters with Intraluminal Device, Via Natural or Artificial Opening Endoscopic (ICD-10-PCS; 2017-01-04)
DX: N39.0 Urinary tract infection, site not specified (principal); N17.0 Acute kidney failure with tubular necrosis; N13.2 Hydronephrosis with renal and ureteral calculous obstruction; E11.21 Type 2 diabetes mellitus with diabetic nephropathy; N12 Tubulo-interstitial nephritis, not specified as acute or chronic; N18.9 Chronic kidney disease, unspecified; E11.22 Type 2 diabetes mellitus with diabetic chronic kidney disease; E66.9 Obesity, unspecified; E78.00 Pure hypercholesterolemia, unspecified; E78.5 Hyperlipidemia, unspecified; F03.90 Unspecified dementia, unspecified severity, without behavioral disturbance, psychotic disturbance, mood disturbance, and anxiety; H54.0 Blindness, both eyes; D64.9 Anemia, unspecified; I12.9 Hypertensive chronic kidney disease with stage 1 through stage 4 chronic kidney disease, or unspecified chronic kidney disease; I25.10 Atherosclerotic heart disease of native coronary artery without angina pectoris; I25.2 Old myocardial infarction; I25.5 Ischemic cardiomyopathy; I48.91 Unspecified atrial fibrillation; I73.9 Peripheral vascular disease, unspecified; J44.9 Chronic obstructive pulmonary disease, unspecified; J45.909 Unspecified asthma, uncomplicated; N18.3 Chronic kidney disease, stage 3 (moderate); K21.9 Gastro-esophageal reflux disease without esophagitis; N40.0 Benign prostatic hyperplasia without lower urinary tract symptoms; R31.0 Gross hematuria; Z88.0 Allergy status to penicillin; Z90.6 Acquired absence of other parts of urinary tract; Z87.891 Personal history of nicotine dependence; Z87.442 Personal history of urinary calculi; Z87.440 Personal history of urinary (tract) infections; Z86.73 Personal history of transient ischemic attack (TIA), and cerebral infarction without residual deficits; Y84.6 Urinary catheterization as the cause of abnormal reaction of the patient, or of later complication, without mention of misadventure at the time of the procedure; Z93.6 Other artificial openings of urinary tract status; Z95.1 Presence of aortocoronary bypass graft; Z96.641 Presence of right artificial hip joint; Z79.899 Other long term (current) drug therapy; N99.522 Malfunction of incontinent external stoma of urinary tract; Y83.8 Other surgical procedures as the cause of abnormal reaction of the patient, or of later complication, without mention of misadventure at the time of the procedure; Y82.8 Other medical devices associated with adverse incidents; Z98.49 Cataract extraction status, unspecified eye
CPT/HCPCS: 36245; 50435; 51702; 74000; 74176; 76937; 82306; 82570; 82607; 82746; 82962; 83036; 83735; 84100; 84153; 84156; 84300; 84439; 84443; 84540; 84550; 85379; 86592; 87081; 87086; 93005; 93306; 96361; 96365; 96375; 97116; 97163; 97167; 97530; 97535; 99285; C9113; J0696; J0744; J1170; J1644; J2250; J2270; J2405; J2704; J3010; J3475; J3490; J7030; J7040; J7060; Q9966

== ENCOUNTER → 2017-02-23 | Outpatient (CLI) | payer MEDICARE, OTHER ==
[~2017-02-23] VITALS: Ht 180.3 cm; Wt 99.4 kg
[~2017-02-23] MED LIST changes: -CILO2.5OS OD; -DICL1OS OD; -DIPH25 PO; -DSS100 PO; -ESOM20CA31 PO; -INSU100C6 SQ; -LISI-622 PO; +LORA1TAB3 PO; -MULT-12 PO; -NITR25OR3 PO; -OXYC10TA89 PO; -SENN8.6T12 PO; -TAMS0.4C32 PO; +ZOLP5 PO
[2017-02-23 12:13] VITALS: BP 135/61
== END | disposition home or self-care (01) ==
LOC: SRCNTR 11:51
PROVIDERS: ATTEND Internal Medicine Critical Care Medicine
DX: J44.9 Chronic obstructive pulmonary disease, unspecified (principal); I11.0 Hypertensive heart disease with heart failure; I50.9 Heart failure, unspecified; E11.9 Type 2 diabetes mellitus without complications; I48.91 Unspecified atrial fibrillation; R91.8 Other nonspecific abnormal finding of lung field; J18.9 Pneumonia, unspecified organism; E78.5 Hyperlipidemia, unspecified; Z96.0 Presence of urogenital implants; Z86.73 Personal history of transient ischemic attack (TIA), and cerebral infarction without residual deficits
CPT/HCPCS: G0463

== ENCOUNTER 2017-12-30 15:12 | Inpatient (IN) | payer MEDICARE, OTHER ==
[~2017-12-30] VITALS: Ht 177.8 cm; Wt 97.4 kg
[~2017-12-30 15:12] MED LIST changes: -CLOP75TA PO; +CLOP75TA14 PO
[2017-12-30] MEDS ORDERED: LEVE250T PO (15:47)
[2017-12-30] MEDS ORDERED: GABA-531 PO (15:47)
[2017-12-30] MEDS ORDERED: DOXY25SU3 PO (15:47)
[2017-12-30] MEDS ORDERED: APIX5TAB PO (15:47)
[2017-12-30] MEDS ORDERED: ASPI81TA87 PO (15:47)
[2017-12-30] MEDS ORDERED: DIVA250T4 PO (15:47)
[2017-12-30] MEDS ORDERED: BUPR1PAT22 TD (15:47)
[2017-12-30] MEDS ORDERED: FERR325T22 PO (15:47)
[2017-12-30] MEDS ORDERED: LISI10TA PO (15:52)
[2017-12-30] MEDS ORDERED: RAME8TAB8 PO (15:52)
[2017-12-30] MEDS ORDERED: PANT40TA PO (15:52)
[2017-12-30] MEDS ORDERED: MIRT15TA6 PO (15:52)
[2017-12-30] MEDS ORDERED: TAMS0.4C32 PO (15:52)
[2017-12-30 17:07] LABS: APPEARANCE,URINE CLOUDY (CLEAR); BILIRUBIN,URINE PRELIM. POSITIVE (NEGATIVE); GLUCOSE, URINE (UA) NEGATIVE (NEGATIVE); KETONES,URINE TRACE mg/dL (NEGATIVE); OCCULT BLOOD,URINE LARGE (NEGATIVE); PH,URINE 5.5 (5.0-8.0); PROTEIN,URINE SEE CONFIRM (NEGATIVE)
[2017-12-30 17:08] LABS: LEUKOCYTE ESTERASE ,URINE TRACE (NEGATIVE); NITRATE,URINE POSITIVE (NEGATIVE)
[2017-12-30 17:14] LABS: HEMATOCRIT 36.8 % (41-53); HEMOGLOBIN 12.3 g/dL (13.5-17.5); MEAN CORPUSCULAR HEMOGLOBIN 28.1 pg (26.0-34.0); MEAN CORPUSCULAR HGB CONC 33.4 G/dL (31.0-37.0); MEAN CORPUSCULAR VOLUME 84 fL (80-100); PLATELET COUNT (AUTO) 273 K/uL (150-450); RED BLOOD CELL COUNT(AUTO) 4.37 MIL/uL (4.50-5.90)
[2017-12-30 17:16] LABS: RBC,URINE Full Field /HPF (0-2); SULFOSALICYLIC ACID,URINE 4+ (Negative)
[2017-12-30 17:17] LABS: BACTERIA,URINE Moderate /HPF (None Seen)
[2017-12-30 17:18] LABS: SQUAMOUS EPITHELIAL CELL,UR Rare /LPF (None Seen)
[2017-12-30 17:23] LABS: INR 1.1 (0.9-1.1); PROTHROMBIN TIME 11.1 SEC (9.4-11.6)
[2017-12-30 17:24] LABS: ANION GAP 6 mmol/L (8-16); CARBON DIOXIDE 29 mmol/L (22-29); CHLORIDE 105 mmol/L (98-107); CREATININE 2.11 mg/dL (0.60-1.30); GLOMERULAR FILTR. RATE CALC 31 mL/min (>60); GLUCOSE,RANDOM 132 mg/dL (70-110); POTASSIUM 4.8 mmol/L (3.5-5.1); SODIUM SERUM 140 mmol/L (136-145); UREA NITROGEN, BLOOD 36 mg/dL (7-18)
[2017-12-30 17:31] LABS: ALANINE AMINOTRANSFERASE 16 U/L (12-78); ALKALINE PHOSPHATASE 99 U/L (46-116); ASPARTATE AMINOTRANSFERASE 10 U/L (15-37); BILIRUBIN,TOTAL 0.2 mg/dL (0.1-1.0); CREATINE KINASE, TOTAL 49 U/L (39-308); TOTAL PROTEIN, SERUM 7.4 g/dL (6.4-8.2)
[2017-12-30 17:36] LABS: B-TYPE NATRIURETIC PEPTIDE 109 pg/mL (0-100)
[2017-12-30 17:56] LABS: BAND NEUTROPHILS % (MANUAL) 2 % (0-5); BASOPHILS % (MANUAL) 1 % (0-2); EOSINOPHILS % (MANUAL) 6 % (1-6); LYMPHOCYTES % (MANUAL) 21 % (22-44); MONOCYTES % (MANUAL) 6 % (2-9); MYELOCYTES % 3 % (0-0); SEGMENTED NEUTROPHILS % 61 % (40-70)
[2017-12-30] MEDS ORDERED: SODIUM CHLORIDE 0.9% 1,000 ML IV ONE (18:15)
[2017-12-30] MEDS ORDERED: DIVA500T35 PO (18:21)
[2017-12-30] MEDS ORDERED: DOXY100C40 PO (18:21)
[2017-12-30] MEDS ORDERED: LEVOFLOXACIN 500 MG/D5% WATER 100 ML IV ONE (20:00)
[2017-12-30] MEDS ORDERED: ONDANSETRON HCL 4 MG/2 ML VIAL IVP PRN (21:30)
[2017-12-30] MEDS ORDERED: VANCOMYCIN HCL 1 GM/D5% WATER 200 ML IV ONE (21:30)
[2017-12-30] MEDS ORDERED: 0.9% SODIUM CHLORIDE 10 ML SYRINGE IVP PRN (21:30)
[2017-12-30] MEDS ORDERED: ACETAMINOPHEN 325 MG TABLET PO PRN (21:30)
[2017-12-30 22:05] VITALS: BP 161/65
[2017-12-30] MEDS ORDERED: SODIUM CHLORIDE 0.9% 500 ML IV ONE (23:09)
[2017-12-31] MEDS ORDERED: ZOLPIDEM TARTRATE 5 MG TABLET PO PRN
[2017-12-31] MEDS ORDERED: MORPHINE SULFATE 4 MG/ML SYRINGE IVP PRN
[2017-12-31] MEDS ORDERED: LORazepam 1 MG TABLET PO PRN
[2017-12-31] MEDS ORDERED: NITROGLYCERIN 0.4 MG SUBLINGUAL TABLET #25 SL PRN
[2017-12-31] MEDS ORDERED: LACTULOSE 20 GM/30 ML SOLUTION UDCUP PO PRN
[2017-12-31 04:00] VITALS: BP 148/70
[2017-12-31 07:40] LABS: BASOPHILS % (AUTO) 0.9 % (0.0-2.0); EOSINOPHILS % (AUTO) 5.7 % (1.0-6.0); HEMATOCRIT 33.8 % (41-53); HEMOGLOBIN 11.2 g/dL (13.5-17.5); MEAN CORPUSCULAR HEMOGLOBIN 27.8 pg (26.0-34.0); MEAN CORPUSCULAR HGB CONC 33.3 G/dL (31.0-37.0); MEAN CORPUSCULAR VOLUME 84 fL (80-100); MONOCYTES # (AUTO) 0.7 K/uL (0.1-1.0); MONOCYTES % (AUTO) 9.6 % (2.0-9.0); NEUTROPHILS # (AUTO) 4.8 K/uL (1.8-7.7); NEUTROPHILS % (AUTO) 69.8 % (40.0-70.0); PLATELET COUNT (AUTO) 246 K/uL (150-450); RED BLOOD CELL COUNT(AUTO) 4.05 MIL/uL (4.50-5.90)
[2017-12-31 07:50] VITALS: BP 148/70
[2017-12-31 07:59] LABS: ALBUMIN 2.6 g/dL (3.4-5.0); BILIRUBIN,TOTAL 0.2 mg/dL (0.1-1.0); CALCIUM, TOTAL 7.7 mg/dL (8.8-10.5); POTASSIUM 4.3 mmol/L (3.5-5.1); TOTAL PROTEIN, SERUM 6.4 g/dL (6.4-8.2)
[2017-12-31] MEDS ORDERED: FLUTICASONE/SALMETEROL 100 MCG-50 MCG/INH DISKUS INHALER [28] IH SCH (09:00)
[2017-12-31] MEDS: DICLOFENAC SODIUM 1% 100 GM GEL [4GM] TP SCH (09:31)
[2017-12-31] MEDS: ASPIRIN 81 MG EC TABLET PO SCH (09:32)
[2017-12-31] MEDS: PANTOPRAZOLE SODIUM 40 MG DR TABLET PO SCH ×2 (09:32→20:52)
[2017-12-31] MEDS: FOLIC ACID 1 MG TABLET PO SCH (09:32)
[2017-12-31] MEDS: FAMOTIDINE 20 MG TABLET PO SCH ×2 (09:32→20:52)
[2017-12-31] MEDS: DIVALPROEX SODIUM 500 MG DR TABLET PO SCH ×2 (09:32→20:50)
[2017-12-31] MEDS: METOPROLOL TARTRATE 25 MG TABLET PO SCH ×2 (09:33→20:52)
[2017-12-31] MEDS: LISINOPRIL 10 MG TABLET PO SCH (09:33)
[2017-12-31] MEDS: AMIODARONE HCL 200 MG TABLET PO SCH (09:33)
[2017-12-31] MEDS: ATORVASTATIN CALCIUM 40 MG TABLET PO SCH (09:33)
[2017-12-31] MEDS: APIXABAN 5 MG TABLET PO SCH ×2 (09:33→20:50)
[2017-12-31] MEDS: FERROUS SULFATE 325 MG EC TABLET PO SCH (09:33)
[2017-12-31] MEDS: TAMSULOSIN HCL 0.4 MG CAPSULE PO SCH (09:33)
[2017-12-31] MEDS: LevETIRAcetam 250 MG TABLET PO SCH (09:33)
[2017-12-31] MEDS: GABAPENTIN 300 MG CAPSULE PO SCH ×3 (09:33→20:52)
[2017-12-31] MEDS: PrednisoLONE ACETATE 1% 5 ML OPHTHALMIC SUSPENSION OD SCH ×4 (09:33→20:51)
[2017-12-31] MEDS: CLOPIDOGREL BISULFATE 75 MG TABLET PO SCH (09:38)
[2017-12-31] MEDS: HYDROCODONE/ACETAMINOPHEN 5-325 MG TABLET PO PRN (09:39)
[2017-12-31] MEDS: INSULIN DETEMIR 100 UNITS/ML SQ SCH (10:21)
[2017-12-31 10:42] LABS: GLUCOMETER DEV NAME(LOC) 6N 2D; GLUCOSE,POINT OF CARE 166 MG/DL (70-110)
[2017-12-31 11:53] VITALS: BP 117/76
[2017-12-31 15:42] VITALS: BP 130/72
[2017-12-31 19:41] VITALS: BP 130/52
[2017-12-31] MEDS: LEVOFLOXACIN 500 MG/D5% WATER 100 ML IV SCH (20:50)
[2017-12-31] MEDS: MIRTAZAPINE 15 MG TABLET PO SCH (20:52)
[2017-12-31] MEDS: RANOLAZINE 500 MG SR TABLET PO SCH (21:21)
[2017-12-31 23:29] VITALS: BP 146/75
[2018-01-01 04:54] VITALS: BP 142/68
[2018-01-01 05:32] LABS: GLUCOMETER DEV NAME(LOC) 6N 1E; GLUCOSE,POINT OF CARE 97 MG/DL (70-110)
[2018-01-01 05:56] LABS: ANION GAP 10 mmol/L (8-16); CARBON DIOXIDE 25 mmol/L (22-29); CHLORIDE 106 mmol/L (98-107); CREATININE 2.14 mg/dL (0.60-1.30); GLOMERULAR FILTR. RATE CALC 31 mL/min (>60); GLUCOSE,RANDOM 97 mg/dL (70-110); POTASSIUM 4.5 mmol/L (3.5-5.1); SODIUM SERUM 141 mmol/L (136-145); UREA NITROGEN, BLOOD 35 mg/dL (7-18)
[2018-01-01 07:12] LABS: BASOPHILS % (AUTO) 0.6 % (0.0-2.0); EOSINOPHILS % (AUTO) 5.7 % (1.0-6.0); HEMOGLOBIN 11.8 g/dL (13.5-17.5); LYMPHOCYTES # (AUTO) 1.3 K/uL (1.0-4.8); LYMPHOCYTES % (AUTO) 17.9 % (22.0-44.0); MEAN CORPUSCULAR HGB CONC 33.7 G/dL (31.0-37.0); MEAN CORPUSCULAR VOLUME 83 fL (80-100); MONOCYTES # (AUTO) 0.7 K/uL (0.1-1.0); NEUTROPHILS # (AUTO) 4.9 K/uL (1.8-7.7); NEUTROPHILS % (AUTO) 66.8 % (40.0-70.0); PLATELET COUNT (AUTO) 253 K/uL (150-450); RED CELL DISTRIBUTION WIDTH 14.7 % (11.5-14.5)
[2018-01-01 08:09] VITALS: BP 142/74
[2018-01-01] MEDS: INSULIN DETEMIR 100 UNITS/ML SQ SCH (08:11)
[2018-01-01] MEDS: ASPIRIN 81 MG EC TABLET PO SCH (08:12)
[2018-01-01] MEDS: FERROUS SULFATE 325 MG EC TABLET PO SCH (08:12)
[2018-01-01] MEDS: GABAPENTIN 300 MG CAPSULE PO SCH ×3 (08:12→20:03)
[2018-01-01] MEDS: RANOLAZINE 500 MG SR TABLET PO SCH ×2 (08:12→20:04)
[2018-01-01] MEDS: FLUTICASONE/SALMETEROL 100 MCG-50 MCG/INH DISKUS INHALER [28] IH SCH ×2 (08:12→20:03)
[2018-01-01] MEDS: FAMOTIDINE 20 MG TABLET PO SCH ×2 (08:12→20:04)
[2018-01-01] MEDS: AMIODARONE HCL 200 MG TABLET PO SCH (08:12)
[2018-01-01] MEDS: FOLIC ACID 1 MG TABLET PO SCH (08:13)
[2018-01-01] MEDS: CLOPIDOGREL BISULFATE 75 MG TABLET PO SCH (08:13)
[2018-01-01] MEDS: DICLOFENAC SODIUM 1% 100 GM GEL [4GM] TP SCH (08:13)
[2018-01-01] MEDS: APIXABAN 5 MG TABLET PO SCH ×2 (08:13→20:04)
[2018-01-01] MEDS: TAMSULOSIN HCL 0.4 MG CAPSULE PO SCH (08:13)
[2018-01-01] MEDS: LevETIRAcetam 250 MG TABLET PO SCH (08:13)
[2018-01-01] MEDS: LISINOPRIL 10 MG TABLET PO SCH (08:13)
[2018-01-01] MEDS: METOPROLOL TARTRATE 25 MG TABLET PO SCH ×2 (08:13→20:04)
[2018-01-01] MEDS: DIVALPROEX SODIUM 500 MG DR TABLET PO SCH ×2 (08:13→20:04)
[2018-01-01] MEDS: PANTOPRAZOLE SODIUM 40 MG DR TABLET PO SCH ×2 (08:13→20:04)
[2018-01-01] MEDS: ATORVASTATIN CALCIUM 40 MG TABLET PO SCH (08:13)
[2018-01-01 11:00] VITALS: BP 136/83
[2018-01-01 15:00] VITALS: BP 132/80
[2018-01-01 19:10] VITALS: BP 130/71
[2018-01-01 19:44] LABS: CREATININE,URINE RANDOM 55.5 mg/dL (30.0-125.0)
[2018-01-01] MEDS: MIRTAZAPINE 15 MG TABLET PO SCH (20:03)
[2018-01-01] MEDS: LEVOFLOXACIN 500 MG/D5% WATER 100 ML IV SCH (20:07)
[2018-01-01 23:27] VITALS: BP 144/61
[2018-01-02 03:43] VITALS: BP 122/67
[2018-01-02 06:14] LABS: BASOPHILS % (AUTO) 0.6 % (0.0-2.0); EOSINOPHILS % (AUTO) 6.6 % (1.0-6.0); HEMOGLOBIN 11.7 g/dL (13.5-17.5); LYMPHOCYTES # (AUTO) 1.4 K/uL (1.0-4.8); MEAN CORPUSCULAR HEMOGLOBIN 28.5 pg (26.0-34.0); MEAN CORPUSCULAR HGB CONC 34.5 G/dL (31.0-37.0); MEAN CORPUSCULAR VOLUME 83 fL (80-100); MONOCYTES # (AUTO) 0.6 K/uL (0.1-1.0); MONOCYTES % (AUTO) 8.8 % (2.0-9.0); NEUTROPHILS # (AUTO) 4.6 K/uL (1.8-7.7); PLATELET COUNT (AUTO) 239 K/uL (150-450); RED BLOOD CELL COUNT(AUTO) 4.11 MIL/uL (4.50-5.90); RED CELL DISTRIBUTION WIDTH 14.8 % (11.5-14.5)
[2018-01-02 06:33] LABS: CHOL/HDL RATIO 4.4 (4.2-7.3); CREATININE 2.21 mg/dL (0.60-1.30); FREE T4 (FREE THYROXINE) 0.77 ng/dL (0.76-1.46); THYROID STIMULATING HORMONE 5.24 uIU/mL (0.36-3.74)
[2018-01-02 07:14] VITALS: BP 127/60
[2018-01-02 07:19] LABS: HEMOGLOBIN A1C 6.2 % (4.5-6.2)
[2018-01-02 07:38] LABS: GLUCOMETER DEV NAME(LOC) 6N 2D; GLUCOSE,POINT OF CARE 96 MG/DL (70-110)
[2018-01-02] MEDS: APIXABAN 5 MG TABLET PO SCH ×2 (08:19→20:03)
[2018-01-02] MEDS: TAMSULOSIN HCL 0.4 MG CAPSULE PO SCH (08:19)
[2018-01-02] MEDS: FOLIC ACID 1 MG TABLET PO SCH (08:19)
[2018-01-02] MEDS: ASPIRIN 81 MG EC TABLET PO SCH (08:19)
[2018-01-02] MEDS: DIVALPROEX SODIUM 500 MG DR TABLET PO SCH ×2 (08:19→20:03)
[2018-01-02] MEDS: LevETIRAcetam 250 MG TABLET PO SCH (08:19)
[2018-01-02] MEDS: ATORVASTATIN CALCIUM 40 MG TABLET PO SCH (08:19)
[2018-01-02] MEDS: FERROUS SULFATE 325 MG EC TABLET PO SCH (08:19)
[2018-01-02] MEDS: PANTOPRAZOLE SODIUM 40 MG DR TABLET PO SCH ×2 (08:20→20:02)
[2018-01-02] MEDS: RANOLAZINE 500 MG SR TABLET PO SCH ×2 (08:20→20:03)
[2018-01-02] MEDS: FLUTICASONE/SALMETEROL 100 MCG-50 MCG/INH DISKUS INHALER [28] IH SCH ×2 (08:20→20:03)
[2018-01-02] MEDS: CLOPIDOGREL BISULFATE 75 MG TABLET PO SCH (08:20)
[2018-01-02] MEDS: FAMOTIDINE 20 MG TABLET PO SCH ×2 (08:20→20:02)
[2018-01-02] MEDS: METOPROLOL TARTRATE 25 MG TABLET PO SCH ×2 (08:20→20:02)
[2018-01-02] MEDS: LISINOPRIL 10 MG TABLET PO SCH (08:20)
[2018-01-02] MEDS: DICLOFENAC SODIUM 1% 100 GM GEL [4GM] TP SCH (08:20)
[2018-01-02] MEDS: AMIODARONE HCL 200 MG TABLET PO SCH (08:20)
[2018-01-02] MEDS: GABAPENTIN 300 MG CAPSULE PO SCH ×3 (08:20→20:03)
[2018-01-02] MEDS: INSULIN DETEMIR 100 UNITS/ML SQ SCH (08:44)
[2018-01-02] MEDS: RINGERS SOLUTION,LACTATED 1,000 ML IV SCH (11:47)
[2018-01-02 12:44] VITALS: BP 122/61
[2018-01-02 13:06] LABS: FOLATE SERUM 14.9 ng/mL (5.4-)
[2018-01-02 15:23] VITALS: BP 128/57
[2018-01-02 19:00] VITALS: BP_SYST 150
[2018-01-02] MEDS: MIRTAZAPINE 15 MG TABLET PO SCH (20:02)
[2018-01-02] MEDS: HYDROCODONE/ACETAMINOPHEN 5-325 MG TABLET PO PRN (20:02)
[2018-01-02] MEDS: LEVOFLOXACIN 500 MG/D5% WATER 100 ML IV SCH (20:03)
[2018-01-02] MEDS ORDERED: LEVOFLOXACIN 250 MG TABLET PO ONE (22:45)
[2018-01-02 23:28] VITALS: BP 127/60
[2018-01-03] MEDS: RINGERS SOLUTION,LACTATED 1,000 ML IV SCH ×2 (00:01→10:17)
[2018-01-03 05:34] VITALS: BP 120/55
[2018-01-03 05:34] LABS: BASOPHILS % (AUTO) 0.7 % (0.0-2.0); EOSINOPHILS % (AUTO) 6.4 % (1.0-6.0); HEMATOCRIT 34.4 % (41-53); HEMOGLOBIN 11.8 g/dL (13.5-17.5); LYMPHOCYTES # (AUTO) 1.2 K/uL (1.0-4.8); LYMPHOCYTES % (AUTO) 18.7 % (22.0-44.0); MEAN CORPUSCULAR HEMOGLOBIN 28.6 pg (26.0-34.0); MEAN CORPUSCULAR HGB CONC 34.2 G/dL (31.0-37.0); MEAN CORPUSCULAR VOLUME 84 fL (80-100); MONOCYTES # (AUTO) 0.6 K/uL (0.1-1.0); MONOCYTES % (AUTO) 9.4 % (2.0-9.0); NEUTROPHILS # (AUTO) 4.2 K/uL (1.8-7.7); NEUTROPHILS % (AUTO) 64.8 % (40.0-70.0); PLATELET COUNT (AUTO) 226 K/uL (150-450); RED BLOOD CELL COUNT(AUTO) 4.11 MIL/uL (4.50-5.90)
[2018-01-03 05:38] LABS: CALCIUM, TOTAL 7.7 mg/dL (8.8-10.5); CREATININE 2.18 mg/dL (0.60-1.30); POTASSIUM 4.9 mmol/L (3.5-5.1)
[2018-01-03 07:07] VITALS: BP 121/59
[2018-01-03] MEDS: RANOLAZINE 500 MG SR TABLET PO SCH (10:05)
[2018-01-03] MEDS: FAMOTIDINE 20 MG TABLET PO SCH (10:06)
[2018-01-03] MEDS: GABAPENTIN 300 MG CAPSULE PO SCH (10:06)
[2018-01-03] MEDS: CLOPIDOGREL BISULFATE 75 MG TABLET PO SCH (10:06)
[2018-01-03] MEDS: PANTOPRAZOLE SODIUM 40 MG DR TABLET PO SCH (10:06)
[2018-01-03] MEDS: LISINOPRIL 10 MG TABLET PO SCH (10:06)
[2018-01-03] MEDS: ATORVASTATIN CALCIUM 40 MG TABLET PO SCH (10:06)
[2018-01-03] MEDS: AMIODARONE HCL 200 MG TABLET PO SCH (10:06)
[2018-01-03] MEDS: APIXABAN 5 MG TABLET PO SCH (10:07)
[2018-01-03] MEDS: FERROUS SULFATE 325 MG EC TABLET PO SCH (10:07)
[2018-01-03] MEDS: METOPROLOL TARTRATE 25 MG TABLET PO SCH (10:07)
[2018-01-03] MEDS: FOLIC ACID 1 MG TABLET PO SCH (10:07)
[2018-01-03] MEDS: LevETIRAcetam 250 MG TABLET PO SCH (10:07)
[2018-01-03] MEDS: ASPIRIN 81 MG EC TABLET PO SCH (10:07)
[2018-01-03] MEDS: DIVALPROEX SODIUM 500 MG DR TABLET PO SCH (10:07)
[2018-01-03] MEDS: TAMSULOSIN HCL 0.4 MG CAPSULE PO SCH (10:07)
[2018-01-03] MEDS: DICLOFENAC SODIUM 1% 100 GM GEL [4GM] TP SCH (10:08)
[2018-01-03] MEDS: FLUTICASONE/SALMETEROL 100 MCG-50 MCG/INH DISKUS INHALER [28] IH SCH (10:08)
[2018-01-03] MEDS: INSULIN DETEMIR 100 UNITS/ML SQ SCH ×2 (10:09→10:14)
[2018-01-03 12:30] VITALS: BP 141/77
[2018-01-03 15:18] VITALS: BP 123/67
[2018-01-04] MEDS ORDERED: LEVOFLOXACIN 250 MG TABLET PO SCH (09:00)
== END 2018-01-03 17:19 | DRG 871 ==
LOC: EMS 15:13 → 6N 21:03
PROVIDERS: ADMIT Internal Medicine; ATTEND Internal Medicine
DX: A41.9 Sepsis, unspecified organism (principal); E43 Unspecified severe protein-calorie malnutrition; N17.9 Acute kidney failure, unspecified; E11.22 Type 2 diabetes mellitus with diabetic chronic kidney disease; I48.91 Unspecified atrial fibrillation; I50.9 Heart failure, unspecified; I13.0 Hypertensive heart and chronic kidney disease with heart failure and stage 1 through stage 4 chronic kidney disease, or unspecified chronic kidney disease; E46 Unspecified protein-calorie malnutrition; S32.049A Unspecified fracture of fourth lumbar vertebra, initial encounter for closed fracture; N11.1 Chronic obstructive pyelonephritis; N10 Acute pyelonephritis; F03.90 Unspecified dementia, unspecified severity, without behavioral disturbance, psychotic disturbance, mood disturbance, and anxiety; J44.9 Chronic obstructive pulmonary disease, unspecified; Z87.442 Personal history of urinary calculi; Z88.1 Allergy status to other antibiotic agents; Z88.0 Allergy status to penicillin; K21.9 Gastro-esophageal reflux disease without esophagitis; E78.00 Pure hypercholesterolemia, unspecified; I70.90 Unspecified atherosclerosis; N18.9 Chronic kidney disease, unspecified; Z96.641 Presence of right artificial hip joint; Z95.1 Presence of aortocoronary bypass graft; Z95.5 Presence of coronary angioplasty implant and graft; Z86.73 Personal history of transient ischemic attack (TIA), and cerebral infarction without residual deficits; I25.2 Old myocardial infarction; N20.0 Calculus of kidney; M19.90 Unspecified osteoarthritis, unspecified site; N40.0 Benign prostatic hyperplasia without lower urinary tract symptoms; I71.4 Abdominal aortic aneurysm, without rupture; D64.9 Anemia, unspecified
CPT/HCPCS: 72148; 74176; 82306; 82570; 82607; 82746; 83036; 83735; 83970; 84145; 84156; 84300; 84439; 84443; 87040; 87086; 93005; 96361; 96365; 99285; J1956; J2270; J3370; J3535; J7030; J7040; J7120